=== PATIENT | female | born 1955 | race Caucasian/White ===

== ENCOUNTER 2019-12-29 14:23 | Outpatient (CLI) | payer MEDICARE, MEDICAID, SELFPAY ==
[2019-12-29 15:29] LABS: Alanine Aminotransferase 8 U/L (0-33); Albumin Level 4.6 g/dL (3.5-5.2); Alkaline Phosphatase 117 IU/L (35-105); Anion Gap 16.7 (5-19); Aspartate Amino Transferase 18 U/L (0-32); Blood Urea Nitrogen 16 mg/dL (8-23); Calcium 10.5 mg/dL (8.5-10.5); Carbon Dioxide 27 mmol/L (22-29); Chloride 97 mmol/L (98-107); Glucose 93 mg/dL (65-115); Potassium 3.7 mmol/L (3.5-5.1); Sodium 137 mmol/L (136-145); Total Bilirubin 0.5 mg/dL (0.15-1.2); Total Protein 7.6 g/dL (6.6-8.7)
[2019-12-29 15:40] LABS: Basophils % 0.4 %; Eosinophils # 0.1 10^3/uL (0.0-0.8); Eosinophils % 1.3 %; Hematocrit 44.5 % (37.0-47.0); Hemoglobin 14.5 g/dL (11.5-15.3); Lymphocytes # 1.4 10^3/uL (0.8-4.8); Mean Corpuscular HGB Conc 32.6 g/dL (30.0-36.0); Mean Corpuscular Hemoglobin 30.1 pg (28.0-34.0); Mean Corpuscular Volume 92.3 fL (81-99); Neutrophils # 5.3 10^3/uL (1.8-7.7); Neutrophils % 66.9 %; Nucleated Red Blood Cells % 0 %; Platelet Count 222 10^3/cmm (130-400); Red Blood Count 4.82 10^6/uL (4.1-5.3); Red Cell Distribution Width 13.5 % (12.1-15.1); White Blood Count 7.9 10^3/uL (4.0-10.0)
[2019-12-29 15:51] LABS: Slide Review Slide Review Perform
== END 2019-12-29 14:24 | disposition home or self-care (01) ==
LOC: ONCMED 14:24
PROVIDERS: Family Provider Internal Medicine; PCP Internal Medicine; Visit Provider Internal Medicine Hematology & Oncology
DX: C50.212 Malignant neoplasm of upper-inner quadrant of left female breast (principal); M85.80 Other specified disorders of bone density and structure, unspecified site; R91.8 Other nonspecific abnormal finding of lung field; Z17.0 Estrogen receptor positive status [ER+]; Z79.811 Long term (current) use of aromatase inhibitors; Z92.3 Personal history of irradiation
CPT/HCPCS: 36415; 80053; 85025; 99214

== ENCOUNTER 2020-01-31 14:47 | Outpatient (CLI) | payer MEDICARE, MEDICAID, SELFPAY ==
--- NOTE | 2020-01-31 14:54 | CT_ITS ---
WS: [id number] CT CHEST TECHNIQUE: Contrast enhanced CT of the chest with coronal and sagittal reformatted images. CLINICAL INFORMATION: POLMONARY NODULE COMPARISON: CT August 03, 2019 and multiple prior CTs dating back to May 01, 2018 DLP: 726.[address] scans at [facility] use at least one of these dose optimization techniques: automat ed exposure control; mA and/or kV adjustment per patient size (includes targeted exams where dose is matched to clinical indication); or iterative reconstruction. FINDINGS: Moderate chronic emphysematous changes. Again seen are the nodular opacities in the right middle lobe anteriorly unchanged since the previous examination. Again seen is the noncalcified pulmonary nodul e right upper lobe anteriorly today measuring 8.3 mm compared to 4 mm previous. Recommend 3 month int erval follow-up. Otherwise no new pulmonary opacities. Aortic calcification. No mediastinal or hilar lymphadenopathy. No axillary lymphadenopathy. Normal en dobronchial tree. Mild diffuse fatty infiltration liver. Stable hepatic cysts. Normal adrenal glands. Prior ventral abdominal wall hernia repair. Hypertrophic changes thoracic spine. CT/CT chest w con* [id number] IMPRESSION: 1. Nodular opacities in the right middle lobe along the distal bronchi stable since May 01, 2018 2. Presented described noncalcified pulmonary nodule in right upper lobe is in creased in size today measuring 8.3 mm. Recommend short interval 3 month follow -up. 3. Stable moderate chronic emphysematous changes. 4. No mediastinal or hilar lymphadenopathy. 5. Mild diffuse fatty infiltration of the liver. 6. Stable ventral abdominal wall hernia repair.
[2020-01-31] MEDS: iohexol 300 mg/mL 100 mL Btl IV (15:09)
== END 2020-01-31 14:48 | disposition home or self-care (01) ==
LOC: RADWPI 14:53
PROVIDERS: Family Provider Internal Medicine; PCP Internal Medicine; Visit Provider Internal Medicine
DX: J43.9 Emphysema, unspecified (principal); R91.8 Other nonspecific abnormal finding of lung field; K76.0 Fatty (change of) liver, not elsewhere classified; Z98.890 Other specified postprocedural states
CPT/HCPCS: 71260; Q9967

== ENCOUNTER 2020-03-06 11:16 | Emergency (ER) | payer MEDICARE, MEDICAID, SELFPAY ==
--- NOTE | 2020-03-06 11:28 | W.ED.EXTPRO ---
HPI - Extremity Problem General: Chief complaint: Extremity Injury, Lower Stated complaint: RIGHT FOOT SWELLING Time Seen by Provider: 03/06/20 11:28 Source: patient Mode of arrival: ambulatory Limitations: no limitations History of Present Illness: HPI Narrative: Patient is a 64-year-old female who presents to ED today with complaints of right foot pain. Patient states approximately 3 to 4 days ago while working in her garden she noticed some right foot pain and afterwards noticed the area was swollen. Patient has been resting the extremity and elevating it and has noticed over the weekend swelling and most of the pain has subsided but decided to come to the ED for evaluation. She rates her pain at a 2 out of 10 currently. She does report previous hardware in the foot and ankle that was subsequently removed. Has not had much issue with the foot or ankle joint since. He has not noticed any redness or warmth to the foot. No changes in sensation. MD Complaint: extremity pain Onset (ago): day(s) Pain Consistency: other (almost fully resolved ) Radiation: none Associated symptoms: Reports no associated symptoms Review of Systems Musc: Reports: extremity pain (R foot pain) Neuro: Denies: numbness in extremities, weakness in extremities, changes in sensation or difficulty walking PFS ED PFSH: Social History Smoking and tobacco status: current every day smoker Physical Exam Const: COMMON NORMALS: no apparent distress, average body habitus, oriented x3, no limitations, healthy appearing, alert and well nourished Extremity: OTHER: TTP along medial heel of R foot; no swelling or redness noted Neuro: COMMON NORMALS: oriented x3 SENSORIUM/ORIENTATION: Yes alert Course Vital Signs: Vital signs: Vital Signs Temperature 98.1 F 03/06/20 11:31 Pulse Rate 79 03/06/20 11:31 Respiratory Rate 18 03/06/20 11:31 Blood Pressure 169/94 03/06/20 11:31 Pulse Oximetry 99 03/06/20 11:31 MDM - Extremity (Nontraumatic) Imaging Data^: R foot XR: Radiologist's impression: [address] [place] [address] XRay Report Signed Patient: Liz Tyler Unit #: [id number] : 1955 Age/Sex: 64 / F ADM Date: 03/06/20 Loc: ER Room/Bed: Attending Dr: Ordering Provider/Ordering MD: Melly Burgos Date of Service: 03/06/20 Procedure(s): XR foot RT min 3V* [id number] Accession Number(s): [id number] Report Number: [id number] WS: [id number] RIGHT FOOT: 3 VIEW(S) TECHNIQUE: PA, oblique and lateral. HISTORY: pain/swelling COMPARISON: None available. Diffuse osteopenia. No acute fracture is identified. Normal tarsal/metatarsal alignment. Fixation screw distal fibula. XR/XR foot RT min 3V* [id number] IMPRESSION: Diffuse osteopenia. No acute fracture identified. Dictated By: Silvia Carrillo DO Signed By: Silvia Carrillo DO Signed Date/Time: 03/06/20 1237 DD/ 1235 Discharge Plan Discharge Patient Disposition: Home, Self-Care Clinical Impression: Acute pain of right foot Condition: Stable Discharge Orders: Discharge Order (Routine); Ordered 03/06/20 Ordered By: Melly Burgos Referrals: Lizbeth Galan MD [Primary Care Provider] - Discharge Diet: Usual diet Discharge Activity: Increase activity as tolerated Coding Level of Care Code ED Page Technician for Cherri Handy
[2020-03-06 11:31] VITALS: BP 169/94; PULSE 79; RESP 18; TEMP 36.7; O2SAT 99; BMI 24.7
--- NOTE | 2020-03-06 12:12 | XR_ITS ---
WS: [id number] RIGHT FOOT: 3 VIEW(S) TECHNIQUE: PA, oblique and lateral. HISTORY: pain/swelling COMPARISON: None available. Diffuse osteopenia. No acute fracture is identified. Normal tarsal/metatarsal alignment. Fixation screw distal fibula. XR/XR foot RT min 3V* [id number] IMPRESSION: Diffuse osteopenia. No acute fracture identified.
== END 2020-03-06 13:35 | disposition home or self-care (01) ==
PROVIDERS: Emergency Provider Physician Assistant; Family Provider Internal Medicine; PCP Internal Medicine
DX: M79.89 Other specified soft tissue disorders (principal); M79.671 Pain in right foot; F17.200 Nicotine dependence, unspecified, uncomplicated
CPT/HCPCS: 12345; 73630; 99281; 99283

== ENCOUNTER 2020-03-10 12:53 | Outpatient (CLI) | payer MEDICARE, MEDICAID, SELFPAY ==
--- NOTE | 2020-03-10 13:05 | XR_ITS ---
WS: [id number] RIGHT FOOT: 3 VIEW(S) TECHNIQUE: PA, oblique and lateral. HISTORY: PAIN COMPARISON: 03/06/2020 Osteopenia. No fracture identified. No erosions or subluxation. Normal tarsal/metatarsal alignment. Orthopedic screw in the distal fibula without complication. XR/XR foot RT min 3V* [id number] IMPRESSION: Osteopenia. No acute abnormality.
== END 2020-03-10 12:54 | disposition home or self-care (01) ==
LOC: RAD 12:57
PROVIDERS: Family Provider Internal Medicine; PCP Internal Medicine; Visit Provider Nurse Practitioner Family
DX: M79.671 Pain in right foot (principal); M85.871 Other specified disorders of bone density and structure, right ankle and foot
CPT/HCPCS: 73630

== ENCOUNTER → 2020-04-25 15:57 | Outpatient (BNVA) | payer MEDICARE, MEDICAID, SELFPAY | PROVIDERS: Family Provider Internal Medicine; PCP Internal Medicine; Referring Provider Nurse Practitioner Family; Visit Provider Podiatrist Foot & Ankle Surgery | DX: M77.31 Calcaneal spur, right foot (principal) | CPT/HCPCS: 73650 ==

== ENCOUNTER 2020-04-28 12:49 | Outpatient (CLI) | payer MEDICARE, MEDICAID, SELFPAY ==
--- NOTE | 2020-04-28 12:58 | MM_ITS ---
WS: [id number] DIAGNOSTIC BILATERAL DIGITAL MAMMOGRAM WITH CAD HISTORY: HX OF BREAST CA COMPARISON: 04/05/2019, 04/22/2018 and 04/03/2018 TECHNIQUE: Bilateral craniocaudad, mediolateral oblique, and mediolateral views are submitted. Comput er aided detection utilized. Breast composition: The breasts are heterogeneously dense, which may obscure small masses. Mild incre ase in the trabecular pattern throughout the LEFT breast with mild volume loss. Consistent with prior history of lumpectomy. There is distortion at the lumpectomy site. No new or increasing areas of dis tortion. Scattered calcifications within each breast. MM/[place] [id number] IMPRESSION: BI-RADS: 2-Benign FOLLOW UP: 1 Year Follow-up
== END 2020-04-28 12:50 | disposition home or self-care (01) ==
LOC: RADSHAW 12:56
PROVIDERS: PCP Internal Medicine; Visit Provider Internal Medicine
DX: Z85.3 Personal history of malignant neoplasm of breast (principal)
CPT/HCPCS: 77066

== ENCOUNTER 2020-06-28 12:03 | Outpatient (CLI) | payer MEDICARE, MEDICAID, SELFPAY ==
[2020-06-28 12:31] LABS: Basophils % 0.5 %; Eosinophils # 0.2 10^3/uL (0.0-0.8); Eosinophils % 3.5 %; Hematocrit 45.7 % (37.0-47.0); Hemoglobin 14.2 g/dL (11.5-15.3); Lymphocytes # 1.1 10^3/uL (0.8-4.8); Lymphocytes % 17.7 %; Mean Corpuscular HGB Conc 31.1 g/dL (30.0-36.0); Mean Corpuscular Hemoglobin 29.6 pg (28.0-34.0); Mean Corpuscular Volume 95.4 fL (81-99); Mean Platelet Volume 10.9 fL (7.4-10.4); Monocytes # 0.8 10^3/uL (0.2-0.9); Monocytes % 13.7 %; Neutrophils # 3.86 10^3/uL (1.8-7.7); Neutrophils % 63.9 %; Nucleated Red Blood Cells % 0 %; Platelet Count 201 10^3/cmm (130-400); Red Blood Count 4.79 10^6/uL (4.1-5.3); Red Cell Distribution Width 14.2 % (12.1-15.1)
[2020-06-28 12:56] LABS: Alanine Aminotransferase 9 U/L (0-33); Albumin Level 4.3 g/dL (3.5-5.2); Alkaline Phosphatase 102 IU/L (35-105); Anion Gap 14.7 (5-19); Aspartate Amino Transferase 15 U/L (0-32); Blood Urea Nitrogen 21 mg/dL (8-23); Calcium 9.1 mg/dL (8.5-10.5); Carbon Dioxide 26 mmol/L (22-29); Chloride 105 mmol/L (98-107); Globulin 2.7 g/dL (1.3-4.6); Glomerular Filtration Rate 44.9 mL/min (90-130); Glucose 84 mg/dL (65-115); Osmolality Calculated 288 mOsm/kg (285-295); Potassium 4.7 mmol/L (3.5-5.1); Sodium 141 mmol/L (136-145); Total Bilirubin 0.3 mg/dL (0.15-1.2)
--- NOTE | 2020-06-28 15:07 | ONC FU_ITS ---
Dr. East follow up note Patient: Liz Tyler Unit #: [id number]: 1955 Dicatated By: Edgar East M.D.Date of Visit:Jun 28, 2020 Onc Med Follow-up/Prog Note History of Present Illness: Mrs. Liz Azul, 65-year-old female who was recently diagnosed with infiltrating adenocarcinoma left breast as per patient her routine annual follow-up mammogram done this year showed a spiculated mass in her left breast which was confirmed with a left breast ultrasound done on 04/22/2018 at that time she underwent sonogram guided left breast biopsy which confirmed infiltrating adenocarcinoma, patient underwent left breast excisional biopsy with sentinel lymph node biopsy on 06/05/2018 which showed infiltrating ductal carcinoma but positive inferior and posterior margin and 1 out of 4, positive lymph node. ER/HI positive HER-2/leila negative. Patient underwent reexcision of inferior and posterior margins on 06/24/2018 and final pathology report showed inferior margin involved by microscopic nest of residual tumor whereas posterior margin was free of residual tumor.Oncotype DX showed low risk s/p postlumpectomy radiation in 09/10 and now on adjuvant hormonal therapy with Arimidex vitamin D/calcium, since 07/21/18 Follow-up mammogram done on 04/05/2019 showed BI-RADS 2, benign follow-up mammogram done on April 28, 2020 showed BI-RADS 2, benign Follow-up CT scan of chest ordered by PMD regarding right middle lobe lung nodule on January 31, 2020 showed noncalcified pulmonary nodule in the right upper lobe is increased in size, 8.3 mm compared to 4 mm previously on August 03, 2019. Right middle lobe nodular opacities stable since May 01, 2018. Otherwise no mediastinal or hilar lymphadenopathy Came for follow-up, denies any specific complaints, no fever chills, no nausea or vomiting, no diarrhea constipation, no hemoptysis or hematemesis, no new bony pains, still smoking about 2 packs a day. Tolerating Arimidex/vitamin D/calcium and weekly Fosamax well Medications: ClearLax Powder Oral daily PRN, Levothyroxine Sodium 1 (50 mcg) Tablet Oral daily, Meloxicam 1 (15 mg) Tablet Oral daily, Pravastatin Sodium 1 (40 mg) Tablet Oral at bedtime, Symbicort 2 puff(s) (of 160-4.5 mcg/act) Aerosol Inhalation b.i.d., TraZODone HCl 1 (100 mg) Tablet Oral at bedtime Allergies: Codeine Sulfate Review of Systems: Review of Systems is not available for this patient. Vital Signs: Performed on Jun 28, 2020 14:31 Height - 63.00 in Weight - 147.4 lbs (HIGH) BSA - 1.70 sq.m BMI - 26.11 Temperature - 98.1 F (LOW) Pulse - 79 /min Respiration - 24 /min BP - 113/77 mm(hg) O2 Sat - 94 % (LOW) Pain - 0 Performance Status: 0 - Fully active, able to carry on all predisease activities without restrictions. (ECOG) Physical Examination: Respiratory - Poor air entry otherwise clear, Cardiovascular - Regular rate and rhythm of heart, Gastrointestinal - Soft, bowel sounds present, Extremities - No visible edema. Lab/Imaging: Most recent lab results are not available for this patient. Impression: Infiltrating ductal carcinoma involving left breast per biopsy and sentinel lymph node done on 06/05/2018 followed by reexcision on 06/24/2018 for positive inferior and posterior margin and final pathology report showed persistent positive inferior margin but posterior margin was cleared. Next Size of tumor 3.2 x 2.6 cm, T2 1 out of 4, positive sentinel lymph node pN1 (SN) ER 98%, HI 95%, HER-2/leila negative stage IIB Oncotype DX score 10 e.g. low risk and 5 years risk of recurrence after 5 years of hormone therapy is about 9% Status post postlumpectomy radiation therapy in August 2018 Starting Arimidex 1 mg on 07/21/2018 for 5 years Along with vitamin D and calcium supplements Mammogram done on 04/05/2019 showed her BI-RADS 2 DEXA scan done on 10/25/2019 showed osteopenia, FRAX calculated at 10 years probability for major osteoporotic fracture is 16.6% and osteoporotic hip fracture is 3.8% and patient is on aromatase inhibitor which promote bone demineralization, because of that she was started on preventive dose of Fosamax, 35 mg by mouth weekly on 12/29/2019 Plan: Discussed with patient regarding her labs white blood count 6 hemoglobin 14.2 crit 45.7 platelets 201,000, CMP within normal limit except creatinine 1.2 compared to 0.8 on December 25, 2019 and follow-up mammogram, which was benign and CT scan of chest ordered by her PMD findings which showed increase in size of right upper lobe lung nodule and stable right middle lobe nodular opacities when compared with CT scan done in April 2018. Clinically, patient is doing well with no new signs symptom suggestive of recurrence of disease. Tolerating Arimidex/vitamin D/calcium/weekly Fosamax well, her lab work-up is within normal range except change in creatinine level, as per patient her primary care is following her kidney function as well as right upper lobe lung nodule which showed change in size on CT scan of chest done on January 31, 2020 and follow-up CT scan of chest is scheduled for July 04, 2020,. She will continue with Arimidex and vitamin D/calcium/weekly Fosamax and we will see her back in 6 months with CBC CMP Signed By: Edgar East M.D. <<Signature on File>>
== END 2020-06-28 12:04 | disposition home or self-care (01) ==
LOC: ONCMED 12:07
PROVIDERS: PCP Internal Medicine; Visit Provider Internal Medicine Hematology & Oncology
DX: C50.212 Malignant neoplasm of upper-inner quadrant of left female breast (principal); C77.3 Secondary and unspecified malignant neoplasm of axilla and upper limb lymph nodes; Z17.0 Estrogen receptor positive status [ER+]; R91.1 Solitary pulmonary nodule; M85.80 Other specified disorders of bone density and structure, unspecified site; Z79.811 Long term (current) use of aromatase inhibitors
CPT/HCPCS: 80053; 85025; 99214

== ENCOUNTER 2020-07-04 09:51 | Outpatient (CLI) | payer MEDICARE, MEDICAID, SELFPAY ==
--- NOTE | 2020-07-04 | CT_ITS ---
WS: [id number] CT CHEST WITH INTRAVENOUS CONTRAST HISTORY: PULMONARY NODULE TECHNIQUE: Contiguous 5 mm axial imaging performed on the thorax. Coronal and sagittal reformats are submitted. All CT scans at [facility] use at least one of these dose optimization techniq ues: automated exposure control; mA and/or kV adjustment per patient size (includes targeted exams wh ere dose is matched to clinical indication); or iterative reconstruction. CONTRAST: Visipaque 320; 95 mL IV. DLP: 812.06 mGycm COMPARISON: 01/31/2020, 08/03/2019, 01/18/2019 Lungs and central airway: Hyperinflated lungs from emphysema. Continued increase in size of the ovoid nodule RIGHT upper lobe anteriorly. This nodule now measures 11 x 15 mm in the margins are very slig htly irregular. Long-term stability of tubular opacifications in the RIGHT middle lobe. No new pulmon leatha nodule. No pneumonia. Pleura: Normal. No pleural effusion. Heart and pericardium: Normal size heart. No pericardial effusion. Mediastinum and robin: New, enlarged RIGHT paratracheal lymph node now with a maximum diameter of 1.8 cm. This lymph node is of low attenuation and extends over length of 3.6 cm. May be a cluster of lymp h nodes but is abnormal. There are additional smaller mediastinal lymph nodes. Vessels: Mild atherosclerosis aorta. Normal size pulmonary artery. Chest wall and lower neck: No soft tissue masses. Upper abdomen: The entire liver is not imaged and appears slightly enlarged. There are a few scattere d hypodensities throughout the liver which are probably small cysts but too small to characterize. No adrenal mass. Small hiatal hernia. Osseous structures: Mild increase in thoracic kyphosis. CT/CT chest w con* [id number] IMPRESSION: 1. Significant enlargement in the anterior RIGHT upper lobe pulmonary nodule s darío 01/31/2020. Nodule now measures 11 x 15 mm. Prior measurement 8 x 9 mm. 2. New RIGHT paratracheal lymphadenopathy. 3. Recommend follow-up PET/CT and bronchoscopy. This would be a difficult nodu le to biopsy by CT.
[2020-07-04] MEDS: iodixanol 320 mg/mL 100mL Btl IV (11:20)
== END 2020-07-04 09:52 | disposition home or self-care (01) ==
LOC: RADWPI 09:54
PROVIDERS: PCP Internal Medicine; Visit Provider Internal Medicine
DX: R91.1 Solitary pulmonary nodule (principal); R59.0 Localized enlarged lymph nodes
CPT/HCPCS: 71260; Q9967

== ENCOUNTER 2020-07-28 15:46 | Emergency (ER) | payer MEDICARE, MEDICAID, SELFPAY ==
[2020-07-28 15:55] VITALS: BP 113/81; PULSE 93; RESP 18; TEMP 36.4; O2SAT 97; BMI 25.4
[2020-07-28 17:00] VITALS: O2SAT 94
--- NOTE | 2020-07-28 17:06 | USR_ITS ---
PROCEDURE INFORMATION: Exam: US Abdomen, Limited; Right Upper Quadrant Exam date and time: 07/28/2020 5:30 PM Age: 65 years old Clinical indication: Abdominal pain; Acute; Patient HX: PT had breast cancer 2 years ago. Pain is epigastric and RT. Lateral abd; Additional info: Abd pain TECHNIQUE: Imaging protocol: US abdomen. Real time ultrasound with image documentation. Limited exam focused on the right upper quadrant. COMPARISON: CT abdomen pelvis w con* [id number] 05/08/2018 2:12 PM FINDINGS: Liver: Again note of the inferior segment right hepatic lobe tumor mass sonographic dimensions 32 mm x 30 mm x 32 mm. Known two smaller centimeter and subcentimeter potential metastatic foci as described on the CT abdomen and pelvis examination report. Please refer to that report. Gallbladder: Gallbladder unremarkable. No visible cholelithiasis. No gallbladder wall thickening or pericholecystic fluid. Common bile duct: No visible intra or extrahepatic biliary ectasia. Common bile duct under 3 mm. Pancreas: Visualized pancreas is unremarkable. Right kidney: Right kidney is sonographically normal. No visible hydronephrosis or perinephric fluid. Right renal dimensions 8.7 cm x 3.8 cm x 4 cm. No visible renal mass or dominant cortical cysts. Aorta: The abdominal aorta is nonaneurysmal were visualized. Portal venous: Hepatopetal portal venous flow. Inferior vena cava: IVC patent. Other findings: Please review separate CT abdomen and pelvis report 07/28/2020 6:25 p.m. US/US gall bladder [id number] IMPRESSION: Again note of the inferior segment right hepatic lobe tumor mass sonographic dimensions 32 mm x 30 mm x 32 mm. Known two smaller centimeter and subcentimeter potential metastatic foci as described on the CT abdomen and pelvis examination report. Please refer to that report.
[2020-07-28 17:12] LABS: Basophils % 0.3 %; Eosinophils # 0.3 10^3/uL (0.0-0.8); Eosinophils % 2.6 %; Hematocrit 47.3 % (37.0-47.0); Hemoglobin 15.5 g/dL (11.5-15.3); Lymphocytes # 1.2 10^3/uL (0.8-4.8); Lymphocytes % 9.8 %; Mean Corpuscular HGB Conc 32.8 g/dL (30.0-36.0); Mean Corpuscular Hemoglobin 30.3 pg (28.0-34.0); Mean Corpuscular Volume 92.4 fL (81-99); Mean Platelet Volume 10.5 fL (7.4-10.4); Monocytes # 1.2 10^3/uL (0.2-0.9); Monocytes % 10.3 %; Neutrophils # 8.95 10^3/uL (1.8-7.7); Neutrophils % 76.7 %; Nucleated Red Blood Cells % 0 %; Platelet Count 239 10^3/cmm (130-400); Red Blood Count 5.12 10^6/uL (4.1-5.3); Red Cell Distribution Width 13.9 % (12.1-15.1); White Blood Count 11.7 10^3/uL (4.0-10.0)
--- NOTE | 2020-07-28 17:19 | W.ED.ABDPA2 ---
Documented by User: Kuldip Maya DO 08/02/20 06:40 HPI - Abdominal Pain General: Chief Complaint: Abdominal Pain Stated Complaint: poss gall stones Time Seen by Provider: 07/28/20 16:50 History of Present Illness: HPI narrative: 65-year-old female presents emergency room with right upper quadrant supraumbilical pain radiating around to the back for the last month. She has been nauseated gets worse to both the pain and the nausea shortly after eating. She denies any vomiting or diarrhea. She denied any hematemesis coffee-ground emesis hematochezia or melena. She has been very bloated. He has not had any further evaluation for her gallbladder in the past although this been going on for a while. She also has a history of about a year ago being diagnosed with breast cancer that was stage IIb at the time of diagnosis and was resected but she does not have a mastectomy she has undergone chemotherapy for it as well as radiation. In the course evaluation she is found to have a lung nodule and a follow-up CT last month lung nodule had significantly increased she had perihilar lymphadenopathy on the right. There are no lung nodules in the right upper lobe. She has had a PET scan very recently has not heard the results yet she is supposed to go for bronchoscopy as well but that is not been done either. She denies dysuria urgency or frequency or hematuria. MD elicited complaint: abdominal pain Onset (ago): month(s) (1) Pain Consistency: intermittent Location: Periumbilical Severity: moderate Quality: cramping and stabbing Radiation: back Migration to: RUQ and epigastric Exacerbating factors: eating Relieving factors: nothing Associated Symptoms: Reports anorexia, bloating and GI cramping; Denies change in bowel habits, change in stool character, chills, coffee ground emesis, constipation, diarrhea, dyspepsia, dysuria, excessive flatus, fever(s), heartburn, hematochezia, hematuria, hematemesis, fecal incontinence, loose stools, melena, nausea, poor appetite, syncope and vomiting Review of Systems Const: Denies: fever(s) or chills ENMT: Denies: throat pain, ear or mastoid pain, nasal discharge or nasal congestion Card: Denies: syncope Resp: Denies: dyspnea, productive cough or non-productive cough GI: Reports: bloating and GI cramping; Denies: nausea, vomiting, hematemesis, coffee ground emesis, heartburn, diarrhea, constipation, excessive flatus, fecal incontinence, change in bowel habits, change in stool character, hematochezia or melena : Denies: dysuria or hematuria Skin/Breast: Denies: rash or pruritus PFSH ED PFSH: Medical History (Updated 07/28/20 @ 19:04 by Chiki Jean Baptiste DO) Hx of breast cancer Family History Other CAD (coronary artery disease) Cancer Social History (Updated 07/28/20 @ 18:01 by Kuldip Maya DO) Smoking and tobacco status: current every day smoker cigarettes Packs smoked per day: 2 Years cigarettes smoked: 52 Alcohol intake: never Current occupational status: disabled Physical Exam Const: COMMON NORMALS: no acute distress GENERAL APPEARANCE: cooperative and comfortable ORIENTATION/CONSCIOUSNESS: Yes awake, Yes oriented to person, Yes oriented to place and Yes oriented to time HENMT: COMMON NORMALS: normocephalic, atraumatic and hearing grossly normal bilaterally HEAD & SCALP: normocephalic and atraumatic Neck/C-Spine: COMMON NORMALS: no JVD Resp: COMMON NORMALS: normal respiratory effort, No retractions, No use of accessory muscles and clear to auscultation bilaterally AUSCULTATION: clear to auscultation bilaterally Cardio: COMMON NORMALS: no JVD, regular rate, regular rhythm and No murmurs present (Cardio) RATE: regular rate RHYTHM: regular rhythm GI: COMMON NORMALS: Soft to palpation and No hepatosplenomegaly present AUSCULTATION: Yes normoactive bowel sounds PALPATION: Yes Soft to palpation, No Tenderness to palpation present (GI), No Guarding due to palpation present (GI) and Yes No hepatosplenomegaly present Extremity: COMMON NORMALS: normal to inspection, capillary refill normal, no clubbing, cyanosis or edema, no calf tenderness and no pedal edema Neuro: SENSORIUM/ORIENTATION: Yes oriented to person, Yes oriented to place and Yes oriented to time Skin: COMMON NORMALS: no rashes or lesions noted GENERAL SKIN EXAM: no rashes or lesions noted Course Vital Signs: Vital signs: Vital Signs Temperature 97.5 F L 07/28/20 15:55 Pulse Rate 86 07/28/20 19:32 Respiratory Rate 18 07/28/20 19:32 Blood Pressure 112/80 07/28/20 19:32 Pulse Oximetry 95 07/28/20 19:32 MDM - Abdominal Pain MDM Narrative: Medical decision making narrative: Care transferred to Dr. Burkett at change of shift. See his notes for definitive diagnosis and at discharge. Lab Data: Labs: Lab Results 07/28/20 07/28/20 07/28/20 Range/Units 17:04 17:04 18:49 WBC 11.7 H (4.0-10.0) 10^3/ uL RBC 5.12 (4.1-5.3) 10^6/u L Hgb 15.5 H (11.5-15.3) g/dL Hct 47.3 H (37.0-47.0) % MCV 92.4 (81-99) fL MCH 30.3 (28.0-34.0) pg MCHC 32.8 (30.0-36.0) g/dL RDW 13.9 (12.1-15.1) % Plt Count 239 (130-400) 10^3/c mm MPV 10.5 H (7.4-10.4) fL Neut % (Auto) 76.7 % Lymph % (Auto) 9.8 % [place] % (Auto) 10.3 % Eos % (Auto) 2.6 % Baso % (Auto) 0.3 % Neut # (Auto) 8.95 H (1.8-7.7) 10^3/u L Lymph # (Auto) 1.2 (0.8-4.8) 10^3/u L [place] # (Auto) 1.2 H (0.2-0.9) 10^3/u L Eos # (Auto) 0.3 (0.0-0.8) 10^3/u L Baso # (Auto) 0.0 (0.0-0.1) 10^3/u L Nucleated RBC % (a uto) 0 % Nucleated RBCs # 0.0 /100WBC Sodium 137 (136-145) mmol/L Potassium 4.3 (3.5-5.1) mmol/L Chloride 99 (98-107) mmol/L Carbon Dioxide 26 (22-29) mmol/L Anion Gap 16.3 (5-19) BUN 15 (8-23) mg/dL Creatinine 0.9 (0.5-0.9) mg/dL GFR Calculation 62.6 L (90-130) mL/min Glucose 86 (65-115) mg/dL Calculated Osmolal ity 280 L (285-295) mOsm/k g Calcium 9.8 (8.5-10.5) mg/dL Total Bilirubin 0.4 (0.15-1.2) mg/dL AST 15 (0-32) U/L ALT 9 (0-33) U/L Alkaline Phosphata se 112 H (35-105) IU/L Total Protein 7.9 (6.6-8.7) g/dL Albumin 4.7 (3.5-5.2) g/dL Globulin 3.2 (1.3-4.6) g/dL Lipase 23 (13-60) U/L Urine Color Yellow (Yellow) Urine Appearance Clear (CLEAR) Urine pH 6.5 (5-7) Ur Specific Gravit y 1.010 (1.005-1.030) Urine Protein Trace (Negative) Urine Glucose (UA) Norm (Normal) Urine Ketones 1+ H (Negative) Urine Blood Neg (Negative) Urine Nitrate Negative (Negative) Urine Bilirubin 1+ H (NEGATIVE) Urine Urobilinogen 4 H (Negative) mg/dL Ur Leukocyte Lauren ase Negative (Negative) Urine RBC None (0-2) /hpf Urine WBC 0-4 H (0-5) /hpf Ur Squamous Epith Cells 0-4 H (0-5) Amorphous Sediment Not Reportable Urine Bacteria Trace (NONE) Urine Mucus 3+ Discharge Plan Discharge Patient Disposition: Home Clinical Impression: Abdominal pain Qualifiers: Abdominal location: epigastric Qualified Code(s): R10.13 - Epigastric pain Condition: Stable Prescriptions: New Prevacid 30 mg capsule,delayed release(DR/EC) 30 mg PO DAILY Qty: 30 RF: 0 Carafate 1 gram tablet 1 gm PO Q6H Qty: 90 RF: 0 No Action levothyroxine 50 mcg capsule 50 mcg PO DAILY RF: 0 trazodone 50 mg tablet 25 mg PO DAILY RF: 0 meloxicam 15 mg tablet 15 mg PO DAILY RF: 0 (DME) heel lift See Rx Instructions .Route .MEDSUPPLY Qty: 1 RF: 0 Discharge Orders: Discharge Order (Routine); Ordered 07/28/20 Ordered By: Chiki Jean Baptiste Referrals: Lizbeth Galan MD [Primary Care Provider] - 4-7 days Patient Instructions: Abdominal Pain (ED) Activity Restrictions/Additional Instructions: Give your oncologist to call Friday to let them know you were here and evaluated for abdominal pain. They may wish to do more or other tests. Let your doctor know you are being treated empirically for gastric ulcer. Return for fever greater than 100, worsening pain despite treatment, vomiting liquids or medications, other concerning symptoms. Discharge Date/Time: 07/28/20 19:33 Coding Level of Care Code ED Active Directory Engineer for Chg Fwd Exam Comprehensive Documented by User: Chiki Jean Baptiste DO 07/28/20 23:28 HPI - Abdominal Pain General: Chief Complaint: Abdominal Pain Stated Complaint: poss gall stones Time Seen by Provider: 07/28/20 16:50 PFSH ED PFSH: Medical History (Updated 07/28/20 @ 19:04 by Chiki Jean Baptiste DO) Hx of breast cancer Family History Other CAD (coronary artery disease) Cancer Social History (Updated 07/28/20 @ 18:01 by Kuldip Maya DO) Smoking and tobacco status: current every day smoker cigarettes Packs smoked per day: 2 Years cigarettes smoked: 52 Alcohol intake: never Current occupational status: disabled Course Vital Signs: Vital signs: Vital Signs Temperature 97.5 F L 07/28/20 15:55 Pulse Rate 86 07/28/20 19:32 Respiratory Rate 18 07/28/20 19:32 Blood Pressure 112/80 07/28/20 19:32 Pulse Oximetry 95 07/28/20 19:32 MDM - Abdominal Pain MDM Narrative: Medical decision making narrative: 65-year-old female checked out to me by Dr. Maya. She is experiencing epigastric type pain. Her hemoglobin is 15.5. She had a mild leukocytosis of 11.7. Her other laboratory is benign. Her CT and ultrasound showed a mass in her liver that is likely metastatic from prior breast cancer. Her gallbladder appears benign. She will be treated for gastric ulcer, as her symptoms fit this. She will follow-up with both primary care and oncology. Lab Data: Labs: Lab Results 07/28/20 07/28/20 07/28/20 Range/Units 17:04 17:04 18:49 WBC 11.7 H (4.0-10.0) 10^3/ uL RBC 5.12 (4.1-5.3) 10^6/u L Hgb 15.5 H (11.5-15.3) g/dL Hct 47.3 H (37.0-47.0) % MCV 92.4 (81-99) fL MCH 30.3 (28.0-34.0) pg MCHC 32.8 (30.0-36.0) g/dL RDW 13.9 (12.1-15.1) % Plt Count 239 (130-400) 10^3/c mm MPV 10.5 H (7.4-10.4) fL Neut % (Auto) 76.7 % Lymph % (Auto) 9.8 % [place] % (Auto) 10.3 % Eos % (Auto) 2.6 % Baso % (Auto) 0.3 % Neut # (Auto) 8.95 H (1.8-7.7) 10^3/u L Lymph # (Auto) 1.2 (0.8-4.8) 10^3/u L [place] # (Auto) 1.2 H (0.2-0.9) 10^3/u L Eos # (Auto) 0.3 (0.0-0.8) 10^3/u L Baso # (Auto) 0.0 (0.0-0.1) 10^3/u L Nucleated RBC % (a uto) 0 % Nucleated RBCs # 0.0 /100WBC Sodium 137 (136-145) mmol/L Potassium 4.3 (3.5-5.1) mmol/L Chloride 99 (98-107) mmol/L Carbon Dioxide 26 (22-29) mmol/L Anion Gap 16.3 (5-19) BUN 15 (8-23) mg/dL Creatinine 0.9 (0.5-0.9) mg/dL GFR Calculation 62.6 L (90-130) mL/min Glucose 86 (65-115) mg/dL Calculated Osmolal ity 280 L (285-295) mOsm/k g Calcium 9.8 (8.5-10.5) mg/dL Total Bilirubin 0.4 (0.15-1.2) mg/dL AST 15 (0-32) U/L ALT 9 (0-33) U/L Alkaline Phosphata se 112 H (35-105) IU/L Total Protein 7.9 (6.6-8.7) g/dL Albumin 4.7 (3.5-5.2) g/dL Globulin 3.2 (1.3-4.6) g/dL Lipase 23 (13-60) U/L Urine Color Yellow (Yellow) Urine Appearance Clear (CLEAR) Urine pH 6.5 (5-7) Ur Specific Gravit y 1.010 (1.005-1.030) Urine Protein Trace (Negative) Urine Glucose (UA) Norm (Normal) Urine Ketones 1+ H (Negative) Urine Blood Neg (Negative) Urine Nitrate Negative (Negative) Urine Bilirubin 1+ H (NEGATIVE) Urine Urobilinogen 4 H (Negative) mg/dL Ur Leukocyte Lauren ase Negative (Negative) Urine RBC None (0-2) /hpf Urine WBC 0-4 H (0-5) /hpf Ur Squamous Epith Cells 0-4 H (0-5) Amorphous Sediment Not Reportable Urine Bacteria Trace (NONE) Urine Mucus 3+ Discharge Plan Discharge Patient Disposition: Home Clinical Impression: Abdominal pain Qualifiers: Abdominal location: epigastric Qualified Code(s): R10.13 - Epigastric pain Condition: Stable Prescriptions: New Prevacid 30 mg capsule,delayed release(DR/EC) 30 mg PO DAILY Qty: 30 RF: 0 Carafate 1 gram tablet 1 gm PO Q6H Qty: 90 RF: 0 No Action levothyroxine 50 mcg capsule 50 mcg PO DAILY RF: 0 trazodone 50 mg tablet 25 mg PO DAILY RF: 0 meloxicam 15 mg tablet 15 mg PO DAILY RF: 0 (DME) heel lift See Rx Instructions .Route .MEDSUPPLY Qty: 1 RF: 0 Discharge Orders: Discharge Order (Routine); Ordered 07/28/20 Ordered By: Chiki Jean Baptiste Referrals: Lizbeth Galan MD [Primary Care Provider] - 4-7 days Patient Instructions: Abdominal Pain (ED) Activity Restrictions/Additional Instructions: Give your oncologist to call Friday to let them know you were here and evaluated for abdominal pain. They may wish to do more or other tests. Let your doctor know you are being treated empirically for gastric ulcer. Return for fever greater than 100, worsening pain despite treatment, vomiting liquids or medications, other concerning symptoms. Discharge Date/Time: 07/28/20 19:33 Coding Level of Care Code ED Active Directory Engineer for Chg Fwd Exam Comprehensive
[2020-07-28 17:37] LABS: Alanine Aminotransferase 9 U/L (0-33); Albumin Level 4.7 g/dL (3.5-5.2); Alkaline Phosphatase 112 IU/L (35-105); Anion Gap 16.3 (5-19); Aspartate Amino Transferase 15 U/L (0-32); Blood Urea Nitrogen 15 mg/dL (8-23); Calcium 9.8 mg/dL (8.5-10.5); Carbon Dioxide 26 mmol/L (22-29); Chloride 99 mmol/L (98-107); Globulin 3.2 g/dL (1.3-4.6); Glomerular Filtration Rate 62.6 mL/min (90-130); Glucose 86 mg/dL (65-115); Lipase 23 U/L (13-60); Osmolality Calculated 280 mOsm/kg (285-295); Potassium 4.3 mmol/L (3.5-5.1); Sodium 137 mmol/L (136-145); Total Bilirubin 0.4 mg/dL (0.15-1.2); Total Protein 7.9 g/dL (6.6-8.7)
--- NOTE | 2020-07-28 17:42 | CTR_ITS ---
PROCEDURE INFORMATION: Exam: CT Abdomen And Pelvis With Contrast Exam date and time: 07/28/2020 5:49 PM Age: 65 years old Clinical indication: Abdominal pain; Localized; Right upper quadrant (ruq); Patient HX: C/O ruq pain and nausea; Additional info: Abd pain TECHNIQUE: Imaging protocol: Computed tomography of the abdomen and pelvis with intravenous contrast. Radiation optimization: All CT scans at this facility use at least one of these dose optimization techniques: automated exposure control; mA and/or kV adjustment per patient size (includes targeted exams where dose is matched to clinical indication); or iterative reconstruction. Contrast material: OMNI 300; Contrast volume: 95 ml; Contrast route: INTRAVENOUS (IV); COMPARISON: CT abdomen pelvis w con* [id number] 05/08/2018 2:12 PM RADIATION DOSE METRICS: Total DLP (mGy-cm): 557.58 FINDINGS: Lungs: Limited assessment lung bases without visible evidence of active cardiopulmonary process. Liver: New right hepatic lobe mass measuring 31 mm x 25 mm x 29 mm located in the inferior segment of the right hepatic lobe. Two smaller metastatic foci are also identified 1 in the anterior segment of the right hepatic lobe measuring 9 mm in the 2nd left hepatic lobe measuring under 1 cm barely perceptible. Again note of rare tiny hepatic simple cysts since 05/08/2018. Concern for either primary hepatic carcinoma versus metastasis. Gallbladder and bile ducts: Gallbladder contracted. No visible cholelithiasis. Pancreas: Pancreas unremarkable. No visible pancreatic mass. No ductal dilatation. Spleen: Normal. No splenomegaly. Adrenals: Normal. No mass. Kidneys and ureters: Normal. No hydronephrosis. Stomach and bowel: No visible colonic mass. No evidence for significant diverticulosis coli or diverticulitis. Nonobstructive bowel pattern. No visible adynamic or reactive ileus. No visible gastric mass. No visible small bowel neoplasm. Appendix: The appendix is visualized and appears noninflamed. Intraperitoneal space: No visible intraperitoneal ascites. Vasculature: The abdominal aorta is nonaneurysmal. Moderate arterial sclerotic disease. Lymph nodes: No visible active mesenteric or retroperitoneal lymphadenopathy. No visible pelvic lymphadenopathy. Bladder: Unremarkable as visualized. Reproductive: Unremarkable as visualized. Bones/joints: No visible osteolytic or osteoblastic destructive process. Osteopenia. Degenerative disc disease with disc space height loss and vacuum disc phenomenon L4/L5. Soft tissues: Unremarkable. CT/CT abdomen pelvis w con* [id number] IMPRESSION: Interval development of neoplasia with the dominant mass inferior segment right hepatic lobe measuring 31 mm x 25 mm x 29 mm. Two smaller suspected metastatic foci also identified. Concern for either primary hepatocellular carcinoma versus metastasis. Radiation Dose CTDIVOL = (mGy): DLP = 557.58 (mGy-cm)
[2020-07-28 17:53] VITALS: BP 103/75; PULSE 78; O2SAT 90
[2020-07-28] MEDS: iohexol 300 mg/mL 100 mL Btl IV (18:02)
[2020-07-28 19:03] LABS: Urine Appearance Clear (CLEAR); Urine Color Yellow (Yellow); pH Urine 6.5 (5-7)
[2020-07-28 19:04] LABS: Add Urine Microscopic? YES; Bilirubin Urine 1+ (NEGATIVE); Blood Urine Neg (Negative); Glucose Urine UA Norm (Normal); Ketones Urine 1+ (Negative); Leukocyte Esterase Urine Negative (Negative); Nitrate Urine Negative (Negative); Protein Urine Trace (Negative); Urobilinogen Urine 4 mg/dL (Negative)
[2020-07-28 19:05] LABS: Add Urine Culture? No; Bacteria Urine TRACE; Mucus Urine 3+; Squamous Epithelial Cell Urine 0-4 (0-5); WBC Urine 0-4 /hpf (0-5)
[2020-07-28 19:32] VITALS: BP 112/80; PULSE 86; RESP 18; O2SAT 95
== END 2020-07-28 19:33 | disposition home or self-care (01) ==
PROVIDERS: Physician Assistant; Emergency Provider Emergency Medicine; PCP Internal Medicine
DX: R10.13 Epigastric pain (principal); Z85.3 Personal history of malignant neoplasm of breast; F17.210 Nicotine dependence, cigarettes, uncomplicated
CPT/HCPCS: 12345; 36415; 74177; 76705; 80053; 81001; 83690; 85025; 99283; Q9967

== ENCOUNTER → 2020-08-17 07:00 | Day surgery (SDC) | payer MEDICARE, MEDICAID, SELFPAY ==
[2020-08-17] VITALS (9 sets, daily range): BP systolic 114–145; BP diastolic 68–96; PULSE 65–89; RESP 16–18; TEMP 36.9; O2SAT 90–100; BMI 25.4
--- NOTE | 2020-08-17 08:02 | US_ITS ---
WS: [id number] ULTRASOUND-GUIDED LIVER BIOPSY. INDICATION: Liver lesion TECHNIQUE: The procedure including risks benefits, locations were discussed with the patient agreed t o proceed. Timeout was performed. Using sterile technique patient was prepped and draped in usual dori rile fashion. Conscious sedation was administered. After 1% lidocaine, using ultrasound guidance, 4 c ore samples were obtained of the right hepatic lesion with a 14-gauge biopsy device. No immediate com plications. Pathology is pending. Patient left the department 2 hours postprocedure in stable conditi on. US/US biopsy liver [id number] IMPRESSION: Uncomplicated ultrasound-guided liver biopsy. Pathology is pending.
[2020-08-17] MEDS: sodium chloride 0.9% 1,000 ML 75 ML IV (08:06)
[2020-08-17] MEDS: fentaNYL 50 mcg/mL INJ 2mL 25 MCG IVP ×2 (08:11→09:00)
[2020-08-17] MEDS: midazolam 1 mg/mL INJ 2 mL IVP ×2 (08:12→09:00)
[2020-08-17 08:13] LABS: INR 0.83 (0.8-1.2)
[2020-08-17] MEDS: acetaminophen-codeine 300-30mg Tablet 1 TAB PO (10:50)
== END | disposition home or self-care (01) ==
PROVIDERS: Radiology Neuroradiology; PCP Internal Medicine; Visit Provider Internal Medicine
DX: C78.7 Secondary malignant neoplasm of liver and intrahepatic bile duct (principal)
CPT/HCPCS: 36415; 47000; 76942; 85610; 88307; J2250; J3010; J7030

== ENCOUNTER 2020-08-28 13:05 | Outpatient (CLI) | payer MEDICARE, MEDICAID, SELFPAY ==
--- NOTE | 2020-08-28 13:13 | XR_ITS ---
WS: [id number] XR lumbar spine 2-3V* [id number] REASON FOR EXAM: PAIN IN BACK/BREAST CANCER FINDINGS: There are 6 lumbar lumbar vertebral bodies. There is mildly decreased bone density. No significant vertebral body compression deformity is identified. There is severe narrowing of the interspace between the fifth and sixth lumbar vertebral bodies with adjacent osteophytic spurring. Degenerative arthropathic changes seen in the facet joints L2-S1. There is lateral articulation on th e left at L6 S1 XR/XR lumbar spine 2-3V* [id number] IMPRESSION: Degenerative spondylosis as above. No focal bone lesion.
--- NOTE | 2020-08-28 13:13 | XRR_ITS ---
PROCEDURE INFORMATION: Exam: XR Bilateral Hips with Pelvis when Performed Exam date and time: 08/28/2020 1:48 PM Age: 65 years old Clinical indication: Hip pain; Bilateral; Additional info: Pain in bilateral hips/breast cancer TECHNIQUE: Imaging protocol: XR bilateral hips with pelvis when performed. Views: 2 views. COMPARISON: CT abdomen pelvis w con* [id number] 07/28/2020 5:55 PM FINDINGS: Bones/joints: No lytic or blastic skeletal lesions. No acute fracture. Soft tissues: Postoperative change in the abdomen. XR/XR hip BI 3-4V wo/w pel [id number] IMPRESSION: No acute findings.
== END 2020-08-28 13:06 | disposition home or self-care (01) ==
LOC: RAD 13:10
PROVIDERS: PCP Internal Medicine; Visit Provider Internal Medicine
DX: M25.551 Pain in right hip (principal); M25.552 Pain in left hip; C50.919 Malignant neoplasm of unspecified site of unspecified female breast; M47.816 Spondylosis without myelopathy or radiculopathy, lumbar region
CPT/HCPCS: 72100; 73522

== ENCOUNTER 2020-08-29 15:43 | Outpatient (CLI) | payer MEDICARE, MEDICAID, SELFPAY ==
--- NOTE | 2020-08-29 16:54 | ONC FU_ITS ---
Dr. East follow up note Patient: Liz Tyler Unit #: [id number]: 1955 Dicatated By: Edgar East M.D.Date of Visit:Aug 29, 2020 Onc Med Follow-up/Prog Note History of Present Illness: Mrs. Liz Azul, 65-year-old female who was recently diagnosed with infiltrating adenocarcinoma left breast as per patient her routine annual follow-up mammogram done this year showed a spiculated mass in her left breast which was confirmed with a left breast ultrasound done on 04/22/2018 at that time she underwent sonogram guided left breast biopsy which confirmed infiltrating adenocarcinoma, patient underwent left breast excisional biopsy with sentinel lymph node biopsy on 06/05/2018 which showed infiltrating ductal carcinoma but positive inferior and posterior margin and 1 out of 4, positive lymph node. ER/UT positive HER-2/leila negative. Patient underwent reexcision of inferior and posterior margins on 06/24/2018 and final pathology report showed inferior margin involved by microscopic nest of residual tumor whereas posterior margin was free of residual tumor.Oncotype DX showed low risk s/p postlumpectomy radiation in 09/10 and now on adjuvant hormonal therapy with Arimidex vitamin D/calcium, since 07/21/18 Follow-up mammogram done on 04/05/2019 showed BI-RADS 2, benign follow-up mammogram done on April 28, 2020 showed BI-RADS 2, benign Follow-up CT scan of chest ordered by PMD regarding right middle lobe lung nodule on January 31, 2020 showed noncalcified pulmonary nodule in the right upper lobe is increased in size, 8.3 mm compared to 4 mm previously on August 03, 2019. Right middle lobe nodular opacities stable since May 01, 2018. Otherwise no mediastinal or hilar lymphadenopathy Tolerating Arimidex/vitamin D/calcium and weekly Fosamax well Patient underwent follow-up CT scan of chest ordered by her PMD on July 04, 2020 which showed significant enlargement of anterior right upper lobe lobe pulmonary nodules since January 31, 2020 nodule now measures 1.1 x 1.5 cm compared to 8 x 9 mm previously. And also showed new enlarged right paratracheal lymph node measuring about 1.8 cm. And on the scan entire liver is not imaged and appears slightly enlarged. There are few scattered hypodensities throughout the liver which are probably small cysts but too small to characterize no renal mass seen., Patient underwent CT PET scan ordered by her PMD on July 26, 2020 in [place] which showed nodule identified in anterior portion of right upper lobe measuring 1.1 x 1.4 cm shows SUV of 8.5. Inferior to this are other pulmonary micronodules measuring less than 1 cm. No other abnormality seen in the lung but abnormally enlarged right paratracheal lymph nodes are identified measuring 2.2 x 2.3 cm shows abnormal activity with SUV of 9.9. No other enlarged lymph nodes or any other abnormality seen. Abnormal uptake identified in a lesion superiorly and left lobe, larger lesion inferiorly in the right lobe also shows abnormal activity with SUV of 9.6. Came for follow-up, patient denies any specific complaints, no fever chills, no nausea or vomiting, no diarrhea constipation, no hemoptysis hematemesis patient recently quit smoking after knowing about abnormal CT scan and PET scan findings. And liver biopsy which confirmed metastatic adenocarcinoma, as per immunohistochemistry primary is not confirmed yet.Patient underwent liver biopsy recently which shows adenocarcinoma, immunohistochemistry remained inconclusive but possibility of metastatic breast cancer was not ruled out although her primary breast cancer was ER UT positive and metastatic lesion is ER UT negative. Case was discussed with pathologist regarding role of cancer type ID but as her PET scan showed abnormal uptake in right upper lobe as well as right hilar lymph node so pathologist suggested biopsy from right hilar lymph node and if it matches with liver lesion thenitwill be diagnosed as metastatic lung cancer Medications: ClearLax Powder Oral daily PRN, Levothyroxine Sodium 1 (50 mcg) Tablet Oral daily, Meloxicam 1 (15 mg) Tablet Oral daily, Pravastatin Sodium 1 (40 mg) Tablet Oral at bedtime, Prevacid 1 Capsule Capsule Delayed Release Oral daily, Symbicort 2 puff(s) (of 160-4.5 mcg/act) Aerosol Inhalation b.i.d., TraZODone HCl 1 (100 mg) Tablet Oral at bedtime, Wellbutrin SR 1 Tablet (of 150 mg) Tablet SR 12 HR Oral daily Allergies: Codeine Sulfate Review of Systems: Review of Systems is not available for this patient. Vital Signs: Performed on Aug 29, 2020 15:52 Height - 63.00 in Weight - 143.4 lbs (LOW) BSA - 1.68 sq.m BMI - 25.40 Temperature - 99.0 F (HIGH) Pulse - 74 /min Respiration - 24 /min BP - 124/84 mm(hg) O2 Sat - 96 % Pain - 0 Performance Status: 0 - Fully active, able to carry on all predisease activities without restrictions. (ECOG) Physical Examination: Respiratory - Lungs are clear to auscultation, Cardiovascular - Regular rate and rhythm of heart, Gastrointestinal - Soft, bowel sounds present, Extremities - No visible edema or rash. Lab/Imaging: Most recent lab results are not available for this patient. Impression: Metastatic adenocarcinoma per liver biopsy done on August 17, 2020, immunohistochemistry positive for CK 7, CK 20, E CAD, but negative for CDX 2, Napsin, p63, TTF-1, estrogen receptor, progesterone receptors and Glypican-3. CT PET scan done on July 26, 2020 showed nodule identified in anterior portion of right upper lobe measuring 1.1 x 1.4 cm with SUV of 8.5 and abnormally enlarged right paratracheal lymph nodes size 2.2 x 2.3 cm with SUV of 9.9 no other abnormality seen in the lung but in the liver abnormal uptake identified in the lesion superiorly and left lobe. Larger lesion inferiorly in the right lobe also shows abnormal activity with SUV of 9.6. No other abnormality seen. Infiltrating ductal carcinoma involving left breast per biopsy and sentinel lymph node done on 06/05/2018 followed by reexcision on 06/24/2018 for positive inferior and posterior margin and final pathology report showed persistent positive inferior margin but posterior margin was cleared. Next Size of tumor 3.2 x 2.6 cm, T2 1 out of 4, positive sentinel lymph node pN1 (SN) ER 98%, UT 95%, HER-2/leila negative stage IIB Oncotype DX score 10 e.g. low risk and 5 years risk of recurrence after 5 years of hormone therapy is about 9% Status post postlumpectomy radiation therapy in August 2018 Starting Arimidex 1 mg on 07/21/2018 for 5 years Along with vitamin D and calcium supplements Mammogram done on 04/05/2019 showed her BI-RADS 2 DEXA scan done on 10/25/2019 showed osteopenia, FRAX calculated at 10 years probability for major osteoporotic fracture is 16.6% and osteoporotic hip fracture is 3.8% and patient is on aromatase inhibitor which promote bone demineralization, because of that she was started on preventive dose of Fosamax, 35 mg by mouth weekly on 12/29/2019 Plan: Discussed with patient regarding her liver biopsy report as well as abnormal CT scan of the chest which was done on July 04, [address] PET scan which was done on July 26, 2020, her liver biopsy was done on August 17, 2020 which confirmed metastatic carcinoma and immunohistochemistry stains remained inconclusive. Case was discussed with pathologist on August 28, 2020 and he recommended bronchoscopy and biopsy from right hilar lesion and if it matches with the liver lesion then metastatic lung cancer will be the final diagnosis otherwise we will consider cancer type ID on the liver lesion. Discussed with patient and her daughter and both expressed full understanding and agreed with referral to pulmonology for bronchoscopy and right paratracheal lymph node biopsy. All the questions were answered to their satisfaction and copies of CT scan and PET scan were provided. And patient will return to clinic 1 week after lung biopsy for further discussion. Signed By: Edgar East M.D. <<Signature on File>>
== END 2020-08-29 15:44 | disposition home or self-care (01) ==
LOC: ONCMED 15:47
PROVIDERS: PCP Internal Medicine; Visit Provider Internal Medicine Hematology & Oncology
DX: C78.7 Secondary malignant neoplasm of liver and intrahepatic bile duct (principal); C80.1 Malignant (primary) neoplasm, unspecified; C50.212 Malignant neoplasm of upper-inner quadrant of left female breast; C77.3 Secondary and unspecified malignant neoplasm of axilla and upper limb lymph nodes; R91.8 Other nonspecific abnormal finding of lung field; Z17.0 Estrogen receptor positive status [ER+]; M85.80 Other specified disorders of bone density and structure, unspecified site; Z92.3 Personal history of irradiation; Z79.811 Long term (current) use of aromatase inhibitors
CPT/HCPCS: 99214

== ENCOUNTER → 2020-09-05 16:27 | Outpatient (BNVA) | payer MEDICARE, MEDICAID, SELFPAY | PROVIDERS: PCP Internal Medicine; Visit Provider Internal Medicine Critical Care Medicine | DX: Z11.59 Encounter for screening for other viral diseases (principal) | CPT/HCPCS: 87635 ==

== ENCOUNTER 2020-09-08 05:52 | Day surgery (SDC) | payer MEDICARE, MEDICAID, SELFPAY ==
[2020-09-07 17:57] VITALS: BMI 25.4
[2020-09-08] VITALS (7 sets, daily range): BP systolic 115–142; BP diastolic 74–92; PULSE 76–89; RESP 16–20; TEMP 36.2–36.7; O2SAT 95–99
--- NOTE | 2020-09-08 06:42 | ANES.PREANE2 ---
Pre-Anesthetic Assessment Pre-Anesthetic Assessment: Height/Weight: Height 1.6 m Weight 65.317 kg Temp Pulse Resp BP Pulse Ox 98.1 F 79 18 142/92 96 09/08/20 06:10 09/08/20 06:10 09/08/20 06:10 09/08/20 06:10 09/08/20 06:10 Preop Diagnosis: Suspected lung cancer Proposed Procedure: Operation Date: 09/08/20 07:00 Proposed Procedures p Ebus(Not Applicable) - Rubin Gustafson MD Familial anesthetic complications: none Was Beta Kalen taken within 24 hours: N/A Last intake: Intake Last Liquid Date 09/07/20 Last Liquid Time 19:00 Last Solid Date 09/07/20 Last Solid Time 19:00 Social: Social History: Tobacco Exam: Pre-Anes Outpt Exam: alert, oriented x 3, clear to auscultation bilaterally and regular rate & rhythm Airway: Cervical ROM: WNL MP: 2 Dentition: False Pulmonary: Pulmonary: Asthma and COPD Comments: lung nodule GI: GI: GERD Metabolic: Metabolic: Thyroid Musc/skel: Comments: osteopenia Anesthetic Plan: ASA status: 3 Anesthesia: General Risk of > 500 ml blood loss (7ml/kg in children): No PFSH Anesthesia PFSH: Medical History (Updated 09/05/20 @ 15:40 by Rubin Gustafson MD) Hx of breast cancer Family History Other CAD (coronary artery disease) Cancer Social History Smoking and tobacco status: current every day smoker cigarettes Packs smoked per day: 2 Years cigarettes smoked: 52 Alcohol intake: never Lives independently: Yes Household members: none Marital status: Current occupational status: disabled History of recent travel: No Current gender identity: Female Data Anesthesia Cardiac Studies: No Data to Display
--- NOTE | 2020-09-08 07:00 | W.PM.OPSUD ---
Surgery/Procedure H&P Update DATE OF PROCEDURE: September 08, 2020 DATE H&P PERFORMED: 09/05/20 H&P UPDATE INFORMATION: I have reviewed H&P completed within last 30 days, I have examined patient prior to procedure and No changes to prior documentation PREOP DIAGNOSIS: Suspected lung cancer PLANNED PROCEDURE: Bronchoscopy, EBUS Operation Date: 09/08/20 07:00 Proposed Procedures p Ebus(Not Applicable) - Rubin Gustafson MD
[2020-09-08] MEDS: lidocaine 1% INJ 20 mL XX (07:12)
--- NOTE | 2020-09-08 07:45 | P.OP_ITS ---
Operative Report Date of procedure: September 08, 2020 Pre-op Diagnosis: Suspected lung cancer Post-op diagnosis: same Brief History: This is a 65-year-old lady with suspected metastatic lung cancer coming in for bronchoscopic evaluation Procedure: Name of the procedure: Bronchoscopy with inspection of the airway, endobronchial ultrasound-guided transbronchial needle aspiration of lymph nodes and control of bleeding. Indication: Suspected metastatic lung cancer Anesthesia: General anesthesia. Local anesthesia: The kimmy in the right and left mainstem bronchi were anesthetized with 1% lidocaine, 3 mL. Description of the procedure: The procedure was explained to the patient and the consent was obtained. The patient was brought to the OR. The patient underwent endotracheal intubation for general anesthesia. Following induction of general anesthesia, the bronchoscope was advanced through the ET tube. The lower trachea appeared to be normal. The kimmy was sharp. The kimmy, the right and left mainstem bronchi are anesthetized with 1% lidocaine. In a systematic manner bilateral bronchial tree was then examined. The bronchoscope was advanced into the left mainstem bronchus. There was no erythema,mucus or areas of cobblestoning. The left upper lobe, lingula and left lower lobe bronchi were examined up to the third subsegmental level and no abnormalities were ident ified. There is no endobronchial lesion, active bleeding or mucous plug. The bronchoscope was then introduced into the right mainstem bronchus. The right upper lobe, right middle lobe and right lower lobe bronchi were examined up to the third subsegmental level and no abnormalities were identified. The endobronchial ultrasound was introduced through the ET tube. Mediastinal and hilar lymphadenopathy was identified with the ultrasound. Transbronchial needle aspiration was performed from 4Rlymph node. Samples: 1. The transbronchial needle aspiration of the aforementioned lymph node groups were sent for cytology and histopathology. Complications: There was no immediate complications. The patient was extubated and brought to the PACU in stable condition.
--- NOTE | 2020-09-08 07:47 | SUR.OPER ---
ebus balloon removed intact
--- NOTE | 2020-09-08 07:58 | SUR.PHASEI ---
PT TO PACU AWAKES TO VOICE GOOD RESP EFFORT VSS HOB AT 40 DEGREES, PT NOT COUGHING MUCH, SLEEPS IF NOT DISTURBED, WARM BLANKETS TO PT/
--- NOTE | 2020-09-08 08:32 | PTH.EBUS ---
Endobronchial Ultrasound Specimen(s): Lymph node station 4R Gross: The specimen is received fresh in the operating room 2 for an immediate rapid onsite evaluation. The specimen consists of 2 small pieces of dorman-white tissue measuring 0.1 cm in greatest dimension. 2 Diff-Quik slides are made and the rest is submitted in formalin. Preliminary Impression: Lymph node, station 4R, fine-needle aspiration biopsy: ?Few atypical clusters in a background of lymphoid tissue and necrosis. ?Adequate sampling done to save material for permanent fixation. - Specimen Information Pathologist: Isela Escobar Date: 09/08/20 Specimen reported at what time: 07:20 - Clinician Specimen collection time: 07:12 Clinician reported to: Rubin Gustafson
[2020-09-08] MEDS: sodium chloride 0.9% 1,000 ML 30 ML IV (08:48)
--- NOTE | 2020-09-08 09:05 | ANE.PACU2 ---
Inpatient post-anesthesia follow up: Airway intact: Yes Vital signs: Temperature 97.3 F Pulse Rate 76 Respiratory Rate 18 Blood Pressure 119/91 Pulse Oximetry 95 Oxygen Delivery Me thod Room Air Oxygen Flow Rate 8 Fraction of Inspir ed Oxygen Hydration adequate: Yes Nausea and vomiting: No Pain level: 2 Mental status: Baseline
== END 2020-09-08 09:07 | disposition home or self-care (01) ==
PROVIDERS: PCP Internal Medicine; Visit Provider Internal Medicine Critical Care Medicine
PROC: BB4BZZZ Ultrasonography of Pleura (ICD-10-PCS; principal; 2020-09-08 07:00)
DX: C34.90 Malignant neoplasm of unspecified part of unspecified bronchus or lung (principal); J44.9 Chronic obstructive pulmonary disease, unspecified; K21.9 Gastro-esophageal reflux disease without esophagitis; Z85.3 Personal history of malignant neoplasm of breast; F17.210 Nicotine dependence, cigarettes, uncomplicated
CPT/HCPCS: 12345; 31627; 31628; 80500; 88305; J2250; J2405; J2704; J2710; J3010; J3490; J7030

== ENCOUNTER 2020-10-02 06:13 | Outpatient (CLI) | payer MEDICARE, MEDICAID, SELFPAY ==
[2020-10-02 10:12] LABS: Basophils % 0.3 %; Eosinophils # 0.3 10^3/uL (0.0-0.8); Eosinophils % 4.5 %; Hematocrit 41.3 % (37.0-47.0); Lymphocytes % 15.1 %; Mean Corpuscular HGB Conc 31.5 g/dL (30.0-36.0); Mean Corpuscular Hemoglobin 29.6 pg (28.0-34.0); Mean Corpuscular Volume 94.1 fL (81-99); Mean Platelet Volume 10.7 fL (7.4-10.4); Monocytes # 0.8 10^3/uL (0.2-0.9); Monocytes % 12.5 %; Neutrophils # 4.37 10^3/uL (1.8-7.7); Neutrophils % 67.3 %; Nucleated Red Blood Cells % 0 %; Platelet Count 197 10^3/cmm (130-400); Red Blood Count 4.39 10^6/uL (4.1-5.3); White Blood Count 6.5 10^3/uL (4.0-10.0)
[2020-10-02 10:38] LABS: Alanine Aminotransferase 9 U/L (0-33); Albumin Level 4.3 g/dL (3.5-5.2); Alkaline Phosphatase 152 IU/L (35-105); Anion Gap 12.2 (5-19); Aspartate Amino Transferase 19 U/L (0-32); Blood Urea Nitrogen 18 mg/dL (8-23); Calcium 9.6 mg/dL (8.5-10.5); Carbon Dioxide 30 mmol/L (22-29); Chloride 104 mmol/L (98-107); Globulin 2.8 g/dL (1.3-4.6); Glomerular Filtration Rate 62.6 mL/min (90-130); Glucose 83 mg/dL (65-115); Osmolality Calculated 295 mOsm/kg (285-295); Potassium 4.2 mmol/L (3.5-5.1); Sodium 142 mmol/L (136-145); Total Bilirubin 0.2 mg/dL (0.15-1.2); Total Protein 7.1 g/dL (6.6-8.7)
== END 2020-10-02 06:14 | disposition home or self-care (01) ==
PROVIDERS: PCP Internal Medicine; Visit Provider Internal Medicine Hematology & Oncology
DX: C50.212 Malignant neoplasm of upper-inner quadrant of left female breast (principal); Z17.0 Estrogen receptor positive status [ER+]
CPT/HCPCS: 36415; 80053; 85025

== ENCOUNTER 2020-10-03 05:48 | Outpatient (CLI) | payer MEDICARE, MEDICAID, SELFPAY ==
--- NOTE | 2020-10-03 09:14 | ONC FU_ITS ---
Dr. East follow up note Patient: Liz Tyler Unit #: [id number]: 1955 Dicatated By: Edgar East M.D.Date of Visit:Oct 03, 2020 Onc Med Follow-up/Prog Note History of Present Illness: Mrs. Liz Azul, 65-year-old female who was recently diagnosed with infiltrating adenocarcinoma left breast as per patient her routine annual follow-up mammogram done this year showed a spiculated mass in her left breast which was confirmed with a left breast ultrasound done on 04/22/2018 at that time she underwent sonogram guided left breast biopsy which confirmed infiltrating adenocarcinoma, patient underwent left breast excisional biopsy with sentinel lymph node biopsy on 06/05/2018 which showed infiltrating ductal carcinoma but positive inferior and posterior margin and 1 out of 4, positive lymph node. ER/NV positive HER-2/leila negative. Patient underwent reexcision of inferior and posterior margins on 06/24/2018 and final pathology report showed inferior margin involved by microscopic nest of residual tumor whereas posterior margin was free of residual tumor.Oncotype DX showed low risk s/p postlumpectomy radiation in 09/10 and now on adjuvant hormonal therapy with Arimidex vitamin D/calcium, since 07/21/18 Follow-up mammogram done on 04/05/2019 showed BI-RADS 2, benign follow-up mammogram done on April 28, 2020 showed BI-RADS 2, benign Follow-up CT scan of chest ordered by PMD regarding right middle lobe lung nodule on January 31, 2020 showed noncalcified pulmonary nodule in the right upper lobe is increased in size, 8.3 mm compared to 4 mm previously on August 03, 2019. Right middle lobe nodular opacities stable since May 01, 2018. Otherwise no mediastinal or hilar lymphadenopathy Tolerating Arimidex/vitamin D/calcium and weekly Fosamax well Patient underwent follow-up CT scan of chest ordered by her PMD on July 04, 2020 which showed significant enlargement of anterior right upper lobe lobe pulmonary nodules since January 31, 2020 nodule now measures 1.1 x 1.5 cm compared to 8 x 9 mm previously. And also showed new enlarged right paratracheal lymph node measuring about 1.8 cm. And on the scan entire liver is not imaged and appears slightly enlarged. There are few scattered hypodensities throughout the liver which are probably small cysts but too small to characterize no renal mass seen., Patient underwent CT PET scan ordered by her PMD on July 26, 2020 in [place] which showed nodule identified in anterior portion of right upper lobe measuring 1.1 x 1.4 cm shows SUV of 8.5. Inferior to this are other pulmonary micronodules measuring less than 1 cm. No other abnormality seen in the lung but abnormally enlarged right paratracheal lymph nodes are identified measuring 2.2 x 2.3 cm shows abnormal activity with SUV of 9.9. No other enlarged lymph nodes or any other abnormality seen. Abnormal uptake identified in a lesion superiorly and left lobe, larger lesion inferiorly in the right lobe also shows abnormal activity with SUV of 9.6. Came for follow-up, patient denies any specific complaints, no fever chills, no nausea or vomiting, no diarrhea constipation, no hemoptysis hematemesis patient recently quit smoking after knowing about abnormal CT scan and PET scan findings. And liver biopsy which confirmed metastatic adenocarcinoma, as per immunohistochemistry primary is not confirmed yet.Patient underwent liver biopsy recently which shows adenocarcinoma, immunohistochemistry remained inconclusive but possibility of metastatic breast cancer was not ruled out although her primary breast cancer was ER NV positive and metastatic lesion is ER NV negative. 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 But Chromogranin A, negative, synaptophysin, weak positive with again indicating neuroendocrine differentiation. Cancer type ID is pending Came for follow-up, denies any specific complaint except chronic cough, patient is active smoker, denies any hemoptysis or hematemesis, denies any facial flushing, denies any diarrhea but no wheezing for which, as per patient she was given new inhalers by Dr. Gustafson, which is helping her. Denies any headaches or blurred vision or double vision, denies any abdominal pain. Medications: ClearLax Powder Oral daily PRN, Levothyroxine Sodium 1 (50 mcg) Tablet Oral daily, Meloxicam 1 (15 mg) Tablet Oral daily, Pravastatin Sodium 1 (40 mg) Tablet Oral at bedtime, Prevacid 1 Capsule Capsule Delayed Release Oral daily, TraZODone HCl 1 (100 mg) Tablet Oral at bedtime, Wellbutrin SR 1 Tablet (of 150 mg) Tablet SR 12 HR Oral daily Allergies: Codeine Sulfate Review of Systems: Constitutional - Appetite is good and weight is stable. No fever, chills, hot flashes, or night sweats. Energy level is fair, ENMT - No sinus congestion/drainage. No mouth sores. No sore throat or difficulty swallowing, Hematologic/Lymphatic - No abnormal bruising or bleeding, Respiratory - Positive for shortness of breath. Frequent white phlegm productive cough. No pleuritic pain or hemoptysis, Cardiovascular - No angina pain. No palpitations, Gastrointestinal - No nausea or vomiting. No heartburn or acid reflux. No diarrhea or constipation. No blood in the stool or black stools, Genitourinary (F) - No dysuria or hematuria. No urinary frequency. No urgency or incontinence, Musculoskeletal - No joint or bone pain, Neurologic - No headache or dizziness. No numbness/paresthesias or other focal neurologic symptoms, Psychiatric - No anxiety or depression. No insomnia. Vital Signs: Performed on Oct 03, 2020 08:26 Height - 63.00 in Weight - 144.2 lbs (HIGH) BSA - 1.68 sq.m BMI - 25.54 Temperature - 99.0 F (HIGH) Pulse - 72 /min Respiration - 20 /min BP - 141/92 mm(hg) (HIGH) O2 Sat - 95 % (LOW) Pain - 5 Performance Status: 0 - Fully active, able to carry on all predisease activities without restrictions. (ECOG) Physical Examination: Respiratory - Mild wheezing bilaterally, poor air entry, Cardiovascular - Regular rate and rhythm of heart, Gastrointestinal - Soft, bowel sounds present, Extremities - No visible edema or rash. Lab/Imaging: Test performed on Oct 02, 2020 09:58 Sodium 142 mmol/L Potassium 4.2 mmol/L Chloride 104 mmol/L CO2 30 mmol/L Anion Gap 12.2 BUN 18 mg/dL Creatinine 0.9 mg/dL Cr Clearance (Est) 63.1400 mL/min eGFR 62.6 mL/min Glucose 83 mg/dL Osmolality - Calculated 295 mOsm/kg Calcium 9.6 mg/dL Protein, Total 7.1 g/dL Albumin 4.3 g/dL Globulin 2.8 g/dL Bilirubin, Total 0.2 mg/dL ALT (SGPT) 9 U/L AST (SGOT) 19 U/L Alkaline Phosphatase 152 IU/L WBC 6.5 10 3/uL RBC 4.39 10 6/uL HGB 13.0 g/dL HCT 41.3 % MCV 94.1 fL MCH 29.6 pg MCHC 31.5 g/dL RDW 14.0 % Platelet Count 197 10 3/cmm MPV 10.7 fL Neutrophils 4.37 10 3/uL Lymphocytes 1.0 10 3/uL Monocytes 0.8 10 3/uL Eosinophils 0.3 10 3/uL Basophils 0.0 10 3/uL Neutrophil % 67.3 % Lymphocyte % 15.1 % Monocyte % 12.5 % Eosinophil % 4.5 % Basophils % 0.3 % NRBC % 0 % Impression: Metastatic adenocarcinoma per liver biopsy done on August 17, 2020, immunohistochemistry positive for CK 7, CK 20, E CAD, but negative for CDX 2, Napsin, p63, TTF-1, estrogen receptor, progesterone receptors and Glypican-3. CT PET scan done on July 26, 2020 showed nodule identified in anterior portion of right upper lobe measuring 1.1 x 1.4 cm with SUV of 8.5 and abnormally enlarged right paratracheal lymph nodes size 2.2 x 2.3 cm with SUV of 9.9 no other abnormality seen in the lung but in the liver abnormal uptake identified in the lesion superiorly and left lobe. Larger lesion inferiorly in the right lobe also shows abnormal activity with SUV of 9.6. No other abnormality seen. 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 Infiltrating ductal carcinoma involving left breast per biopsy and sentinel lymph node done on 06/05/2018 followed by reexcision on 06/24/2018 for positive inferior and posterior margin and final pathology report showed persistent positive inferior margin but posterior margin was cleared. Next Size of tumor 3.2 x 2.6 cm, T2 1 out of 4, positive sentinel lymph node pN1 (SN) ER 98%, NV 95%, HER-2/leila negative stage IIB Oncotype DX score 10 e.g. low risk and 5 years risk of recurrence after 5 years of hormone therapy is about 9% Status post postlumpectomy radiation therapy in August 2018 Starting Arimidex 1 mg on 07/21/2018 for 5 years Along with vitamin D and calcium supplements Mammogram done on 04/05/2019 showed her BI-RADS 2 DEXA scan done on 10/25/2019 showed osteopenia, FRAX calculated at 10 years probability for major osteoporotic fracture is 16.6% and osteoporotic hip fracture is 3.8% and patient is on aromatase inhibitor which promote bone demineralization, because of that she was started on preventive dose of Fosamax, 35 mg by mouth weekly on 12/29/2019 Plan: Discussed with patient regarding her labs white blood count 6.5 hemoglobin 13 hematocrit 41.3 platelets 197,000 CMP within normal limits and transbronchial biopsy which was done recently showed 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 So we will discuss with pathology regarding mitotic index if is high, we will treat this as aggressive neuroendocrine tumor probably with carboplatin/etoposide based regimen And also request Port-A-Cath placement, on the other hand if mitotic index is low then will wait for cancer type ID to decide about treatment plan as patient may have mixed histology with neuroendocrine differentiation. Patient will return to clinic in 1 week, in the meantime ,we will request pathology to calculate mitotic index Signed By: Edgar East M.D. <<Signature on File>>
== END 2020-10-03 05:49 | disposition home or self-care (01) ==
LOC: ONCMED 05:50
PROVIDERS: PCP Internal Medicine; Visit Provider Internal Medicine Hematology & Oncology
DX: C80.1 Malignant (primary) neoplasm, unspecified (principal); C50.212 Malignant neoplasm of upper-inner quadrant of left female breast; C78.7 Secondary malignant neoplasm of liver and intrahepatic bile duct; C77.1 Secondary and unspecified malignant neoplasm of intrathoracic lymph nodes; R91.1 Solitary pulmonary nodule; Z79.811 Long term (current) use of aromatase inhibitors; Z92.3 Personal history of irradiation; Z17.0 Estrogen receptor positive status [ER+]
CPT/HCPCS: 99214

== ENCOUNTER 2020-10-10 06:09 | Outpatient (CLI) | payer MEDICARE, MEDICAID, SELFPAY ==
[2020-10-10 10:10] LABS: Basophils % 0.3 %; Eosinophils # 0.2 10^3/uL (0.0-0.8); Eosinophils % 2.5 %; Hematocrit 41.3 % (37.0-47.0); Hemoglobin 13.4 g/dL (11.5-15.3); Lymphocytes # 1.1 10^3/uL (0.8-4.8); Lymphocytes % 16.5 %; Mean Corpuscular HGB Conc 32.4 g/dL (30.0-36.0); Mean Corpuscular Hemoglobin 29.8 pg (28.0-34.0); Mean Platelet Volume 10.3 fL (7.4-10.4); Monocytes # 0.8 10^3/uL (0.2-0.9); Monocytes % 12.4 %; Neutrophils % 67.9 %; Nucleated Red Blood Cells % 0 %; Platelet Count 207 10^3/cmm (130-400); Red Blood Count 4.49 10^6/uL (4.1-5.3); White Blood Count 6.8 10^3/uL (4.0-10.0)
[2020-10-10 10:19] LABS: Alanine Aminotransferase 12 U/L (0-33); Albumin Level 4.4 g/dL (3.5-5.2); Alkaline Phosphatase 153 IU/L (35-105); Anion Gap 16.3 (5-19); Aspartate Amino Transferase 17 U/L (0-32); Blood Urea Nitrogen 14 mg/dL (8-23); Calcium 9.7 mg/dL (8.5-10.5); Carbon Dioxide 26 mmol/L (22-29); Chloride 101 mmol/L (98-107); Globulin 2.7 g/dL (1.3-4.6); Glomerular Filtration Rate 83.7 mL/min (90-130); Glucose 78 mg/dL (65-115); Osmolality Calculated 287 mOsm/kg (285-295); Potassium 4.3 mmol/L (3.5-5.1); Sodium 139 mmol/L (136-145); Total Bilirubin 0.3 mg/dL (0.15-1.2); Total Protein 7.1 g/dL (6.6-8.7)
== END 2020-10-10 06:10 | disposition home or self-care (01) ==
LOC: ONCMED 06:12
PROVIDERS: PCP Internal Medicine; Visit Provider Nurse Practitioner
DX: C50.212 Malignant neoplasm of upper-inner quadrant of left female breast (principal)
CPT/HCPCS: 36415; 80053; 85025

== ENCOUNTER 2020-10-13 07:18 | Outpatient (CLI) | payer MEDICARE, MEDICAID, SELFPAY ==
[2020-10-13 11:46] LABS: Basophils % 0.3 %; Eosinophils # 0.2 10^3/uL (0.0-0.8); Eosinophils % 2.8 %; Hematocrit 41.8 % (37.0-47.0); Hemoglobin 13.4 g/dL (11.5-15.3); Lymphocytes # 1.1 10^3/uL (0.8-4.8); Lymphocytes % 17.4 %; Mean Corpuscular HGB Conc 32.1 g/dL (30.0-36.0); Mean Corpuscular Hemoglobin 29.8 pg (28.0-34.0); Mean Corpuscular Volume 93.1 fL (81-99); Mean Platelet Volume 10.7 fL (7.4-10.4); Monocytes # 1.1 10^3/uL (0.2-0.9); Monocytes % 16.6 %; Neutrophils # 3.97 10^3/uL (1.8-7.7); Neutrophils % 62.6 %; Nucleated Red Blood Cells % 0 %; Platelet Count 220 10^3/cmm (130-400); Red Blood Count 4.49 10^6/uL (4.1-5.3); Red Cell Distribution Width 14.2 % (12.1-15.1); White Blood Count 6.3 10^3/uL (4.0-10.0)
[2020-10-13 12:14] LABS: Alanine Aminotransferase 11 U/L (0-33); Albumin Level 4.3 g/dL (3.5-5.2); Alkaline Phosphatase 146 IU/L (35-105); Anion Gap 13.9 (5-19); Aspartate Amino Transferase 20 U/L (0-32); Blood Urea Nitrogen 17 mg/dL (8-23); Calcium 9.4 mg/dL (8.5-10.5); Carbon Dioxide 26 mmol/L (22-29); Chloride 102 mmol/L (98-107); Globulin 2.7 g/dL (1.3-4.6); Glomerular Filtration Rate 62.6 mL/min (90-130); Glucose 91 mg/dL (65-115); Osmolality Calculated 287 mOsm/kg (285-295); Potassium 3.9 mmol/L (3.5-5.1); Sodium 138 mmol/L (136-145); Total Bilirubin 0.3 mg/dL (0.15-1.2)
--- NOTE | 2020-10-13 12:56 | ONC FU_ITS ---
Dr. East follow up note Patient: Liz Tyler Unit #: [id number]: [id number] Dicatated By: Edgar East M.D.Date of Visit:Oct 13, 2020 Onc Med Follow-up/Prog Note History of Present Illness: Mrs. 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 Mrs Azul states during her routine annual follow-up mammogram done this year, a spiculated mass in her left breast was discovered. A left breast ultrasound done on 04/22/2018 at which time she also underwent sonogram guided left breast biopsy which confirmed infiltrating adenocarcinoma. Mrs Azul underwent left breast excisional biopsy with sentinel lymph node biopsy on 06/05/2018 which showed infiltrating ductal carcinoma but positive inferior and posterior margin and 1 out of 4, positive lymph node. ER/UT positive HER-2/leila negative. She underwent reexcision of inferior and posterior margins on 06/24/2018. The final pathology report showed inferior margin involved by microscopic nest of residual tumor whereas posterior margin was free of residual tumor.Oncotype DX showed low risk s/p postlumpectomy radiation in 09/10 and now on adjuvant hormonal therapy with Arimidex vitamin D/calcium, since 07/21/18 Follow-up mammogram done on 04/05/2019 showed BI-RADS 2, benign follow-up mammogram done on April 28, 2020 showed BI-RADS 2, benign Follow-up CT scan of chest ordered by PMD regarding right middle lobe lung nodule on January 31, 2020 showed noncalcified pulmonary nodule in the right upper lobe is increased in size, 8.3 mm compared to 4 mm previously on August 03, 2019. Right middle lobe nodular opacities stable since May 01, 2018. Otherwise no mediastinal or hilar lymphadenopathy Tolerating Arimidex/vitamin D/calcium and weekly Fosamax well Patient underwent follow-up CT scan of chest ordered by her PMD on July 04, 2020 which showed significant enlargement of anterior right upper lobe lobe pulmonary nodules since January 31, 2020 nodule now measures 1.1 x 1.5 cm compared to 8 x 9 mm previously. And also showed new enlarged right paratracheal lymph node measuring about 1.8 cm. And on the scan entire liver is not imaged and appears slightly enlarged. There are few scattered hypodensities throughout the liver which are probably small cysts but too small to characterize no renal mass seen., Patient underwent CT PET scan ordered by her PMD on July 26, 2020 in [place] which showed nodule identified in anterior portion of right upper lobe measuring 1.1 x 1.4 cm shows SUV of 8.5. Inferior to this are other pulmonary micronodules measuring less than 1 cm. No other abnormality seen in the lung but abnormally enlarged right paratracheal lymph nodes are identified measuring 2.2 x 2.3 cm shows abnormal activity with SUV of 9.9. No other enlarged lymph nodes or any other abnormality seen. Abnormal uptake identified in a lesion superiorly and left lobe, larger lesion inferiorly in the right lobe also shows abnormal activity with SUV of 9.6. Patient underwent liver biopsy recently which shows adenocarcinoma, immunohistochemistry remained inconclusive but possibility of metastatic breast cancer was not ruled out although her primary breast cancer was ER UT positive and metastatic lesion is ER UT negative. Case was discussed with pathologist regarding role of cancer type ID but as her PET scan showed abnormal uptake in right upper lobe as well as right hilar lymph node so pathologist suggested biopsy from right hilar lymph node and if it matches with liver lesion then it will be diagnosed as metastatic lung cancer. 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 The immunohistochemistry positive for CD56, indicating neuroendocrine differentiation. But Chromogranin A, negative, synaptophysin, weak positive with again indicating neuroendocrine differentiation. Pathology was requested to do mitotic index to confirm aggressive neuroendocrine versus low-grade, on October 03, 2020. Case was discussed with pathology again on October 12, 2020, mitotic index was pending Came for follow-up, denies any specific complaints, no fever chills, no nausea or vomiting, no diarrhea constipation, no headaches blurred vision double vision, no abdominal pain, no jaundice, no hemoptysis or hematemesis, appetite is good, patient still smoking about a pack a day Medications: ClearLax Powder Oral daily PRN, Levothyroxine Sodium 1 (50 mcg) Tablet Oral daily, Meloxicam 1 (15 mg) Tablet Oral daily, Pravastatin Sodium 1 (40 mg) Tablet Oral at bedtime, Prevacid 1 Capsule Capsule Delayed Release Oral daily, TraZODone HCl 1 (100 mg) Tablet Oral at bedtime, Wellbutrin SR 1 Tablet (of 150 mg) Tablet SR 12 HR Oral daily Allergies: Codeine Sulfate Review of Systems: Review of Systems is not available for this patient. Vital Signs: Performed on Oct 13, 2020 11:43 Height - 63.00 in Weight - 141.4 lbs (LOW) BSA - 1.67 sq.m BMI - 25.05 Temperature - 98.5 F Pulse - 84 /min Respiration - 24 /min BP - 116/78 mm(hg) O2 Sat - 98 % Pain - 0 Performance Status: 0 - Fully active, able to carry on all predisease activities without restrictions. (ECOG) Physical Examination: Respiratory - Lungs are clear to auscultation, Cardiovascular - Regular rate and rhythm of heart, Gastrointestinal - Soft, bowel sounds present, Extremities - No visible edema or rash. Lab/Imaging: Test performed on Oct 10, 2020 09:22 Sodium 139 mmol/L Potassium 4.3 mmol/L Chloride 101 mmol/L CO2 26 mmol/L Anion Gap 16.3 BUN 14 mg/dL Creatinine 0.7 mg/dL Cr Clearance (Est) 81.9700 mL/min eGFR 83.7 mL/min Glucose 78 mg/dL Osmolality - Calculated 287 mOsm/kg Calcium 9.7 mg/dL Protein, Total 7.1 g/dL Albumin 4.4 g/dL Globulin 2.7 g/dL Bilirubin, Total 0.3 mg/dL ALT (SGPT) 12 U/L AST (SGOT) 17 U/L Alkaline Phosphatase 153 IU/L WBC 6.8 10 3/uL RBC 4.49 10 6/uL HGB 13.4 g/dL HCT 41.3 % MCV 92.0 fL MCH 29.8 pg MCHC 32.4 g/dL RDW 14.0 % Platelet Count 207 10 3/cmm MPV 10.3 fL Neutrophils 4.60 10 3/uL Lymphocytes 1.1 10 3/uL Monocytes 0.8 10 3/uL Eosinophils 0.2 10 3/uL Basophils 0.0 10 3/uL Neutrophil % 67.9 % Lymphocyte % 16.5 % Monocyte % 12.4 % Eosinophil % 2.5 % Basophils % 0.3 % NRBC % 0 % Impression: Metastatic adenocarcinoma per liver biopsy done on August 17, 2020, immunohistochemistry positive for CK 7, CK 20, E CAD, but negative for CDX 2, Napsin, p63, TTF-1, estrogen receptor, progesterone receptors and Glypican-3. CT PET scan done on July 26, 2020 showed nodule identified in anterior portion of right upper lobe measuring 1.1 x 1.4 cm with SUV of 8.5 and abnormally enlarged right paratracheal lymph nodes size 2.2 x 2.3 cm with SUV of 9.9 no other abnormality seen in the lung but in the liver abnormal uptake identified in the lesion superiorly and left lobe. Larger lesion inferiorly in the right lobe also shows abnormal activity with SUV of 9.6. No other abnormality seen. 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, immunohistochemistry positive for CD56, synaptophysin, CK7, CK cocktail, weakly positive for p63, and negative for CK20, as per pathology histology is similar to prior liver biopsy sample and suggestive of lung primary with mets to the lymph node as well as liver , Mitotic indexAnd molecular profiling is pending Infiltrating ductal carcinoma involving left breast per biopsy and sentinel lymph node done on 06/05/2018 followed by reexcision on 06/24/2018 for positive inferior and posterior margin and final pathology report showed persistent positive inferior margin but posterior margin was cleared. Next Size of tumor 3.2 x 2.6 cm, T2 1 out of 4, positive sentinel lymph node pN1 (SN) ER 98%, UT 95%, HER-2/leila negative stage IIB Oncotype DX score 10 e.g. low risk and 5 years risk of recurrence after 5 years of hormone therapy is about 9% Status post postlumpectomy radiation therapy in August 2018 Starting Arimidex 1 mg on 07/21/2018 for 5 years Along with vitamin D and calcium supplements Mammogram done on 04/05/2019 showed her BI-RADS 2 DEXA scan done on 10/25/2019 showed osteopenia, FRAX calculated at 10 years probability for major osteoporotic fracture is 16.6% and osteoporotic hip fracture is 3.8% and patient is on aromatase inhibitor which promote bone demineralization, because of that she was started on preventive dose of Fosamax, 35 mg by mouth weekly on 12/29/2019 Plan: Discussed with patient regarding her disease status, as per discussion with pathology yesterday on October 12, 2020 , was told that her mitotic index and molecular profiling is still pending, case was also discussed with her PMD Dr. Galan and was informed that histology and primary confirmation is needed to plan the treatment e.g. if its non-small cell lung cancer then molecular profiling can guide us regarding treatment options eg targeted therapy versus immunotherapy versus chemotherapy, if it is neuroendocrine tumor, mitotic index can help to decide about treatment planning,and if there is other primary then treatment would be planned accordingly, we are still waiting for confirmation, After discussion with the pathologist yesterday, patient was called in for further discussion, now patient and her daughter Consuelo, is considering second opinion or evaluation for clinical trial if available at [facility] in [place], will refer her to cancer clinic at [place] for evaluation regarding second opinion as well as for clinical trial if available. In the meantime we will rerequest cancer type ID while waiting for mitotic index and molecular profiling. Patient return to clinic 1 week after evaluation at [place]. Signed By: Edgar East M.D. <<Signature on File>>
[2020-11-22 09:41] LABS: PD-L1 (Clone 22C3) by IHC BBPL See Report
== END 2020-10-13 07:19 | disposition home or self-care (01) ==
LOC: ONCMED 07:21
PROVIDERS: PCP Internal Medicine; Visit Provider Internal Medicine Hematology & Oncology
DX: C50.212 Malignant neoplasm of upper-inner quadrant of left female breast (principal); Z17.0 Estrogen receptor positive status [ER+]; C80.1 Malignant (primary) neoplasm, unspecified; C78.7 Secondary malignant neoplasm of liver and intrahepatic bile duct; C77.1 Secondary and unspecified malignant neoplasm of intrathoracic lymph nodes; F17.210 Nicotine dependence, cigarettes, uncomplicated; Z79.899 Other long term (current) drug therapy
CPT/HCPCS: 36415; 80053; 85025; 88342; 99214

== ENCOUNTER → 2020-11-02 08:22 | Outpatient (BNVA) | payer MEDICARE, MEDICAID, SELFPAY | PROVIDERS: PCP Internal Medicine; Visit Provider Surgery | DX: Z11.59 Encounter for screening for other viral diseases (principal); C34.90 Malignant neoplasm of unspecified part of unspecified bronchus or lung | CPT/HCPCS: 87635 ==

== ENCOUNTER 2020-11-07 06:07 | Day surgery (SDC) | payer MEDICARE, MEDICAID, SELFPAY ==
[2020-11-03 15:09] VITALS: BMI 25.4
--- NOTE | 2020-11-07 | SCC_ITS ---
Procedure Done: Transinternal jugular vein PowerPort placement 19.4 seconds of fluoroscopic guidance, for a cumulative dose of 2.04 mGy, was provided to Dr. Ramirez by the radiology department. C-arm images of the chest were saved for the patient's permanent record. [facility]
--- NOTE | 2020-11-07 06:10 | SC_ITS ---
WS: [id number] C-arm FL for CVA [id number] REASON FOR EXAM: Powerport Placement FINDINGS: Chemotherapy infusion port over the right lateral chest. Catheter access is from the right internal j ugular vein. The tip is at the cavoatrial junction. SC/C-arm FL for CVA [id number] IMPRESSION: Chemotherapy port placement as above.
[2020-11-07 06:21] VITALS: BP 140/95; PULSE 80; RESP 20; TEMP 37.2; O2SAT 95
--- NOTE | 2020-11-07 06:23 | W.PM.OPSUD ---
Surgery/Procedure H&P Update DATE OF PROCEDURE: November 07, 2020 DATE H&P PERFORMED: 10/26/20 H&P UPDATE INFORMATION: I have reviewed H&P completed within last 30 days, I have examined patient prior to procedure and No changes to prior documentation PREOP DIAGNOSIS: Lung cancer PRIMARY INDICATION FOR PROCEDURE: The same PLANNED PROCEDURE: Operation Date: 11/07/20 07:00 Proposed Procedures p Portacath Placement 52894 C34.90(Not Applicable) - Molina Ramirez MD
[2020-11-07] MEDS: sodium chloride 0.9% 1,000 ML 30 ML IV (06:41)
[2020-11-07] MEDS: lidocaine 2% INJ 20 mL INJECTION (07:00)
--- NOTE | 2020-11-07 07:02 | ANES.PREANE2 ---
Pre-Anesthetic Assessment Pre-Anesthetic Assessment: Height/Weight: Height 1.6 m Weight 65.317 kg Temp Pulse Resp BP Pulse Ox 99 F 80 20 H 140/95 95 11/07/20 06:21 11/07/20 06:21 11/07/20 06:21 11/07/20 06:21 11/07/20 06:21 Preop Diagnosis: Lung cancer Proposed Procedure: Operation Date: 11/07/20 07:00 Proposed Procedures p Portacath Placement 13800 C34.90(Not Applicable) - Molina Ramirez MD Was Beta Kalen taken within 24 hours: N/A Last intake: Intake Last Liquid Date 11/06/20 Last Liquid Time 22:00 Last Solid Date 11/06/20 Last Solid Time 17:30 Social: Social History: Tobacco and No alcohol Exam: Pre-Anes Outpt Exam: alert, oriented x 3 and regular rate & rhythm Additional Exam Findings (including area of procedure): Diffuse late exp ronchi with generally diminished BS Airway: Submandibular: WNL Cervical ROM: WNL MP: 1 Dentition: Partials Pulmonary: Pulmonary: COPD, Cough, CAHMORRO and SOB CV/HEM: CV/HEM: None reported : : None reported Hepatic: Hepatic: None reported GI: GI: GERD Metabolic: Metabolic: Thyroid Musc/skel: Musc/skel: None reported Neuropsych: Neuropsych: None reported Anesthetic Plan: ASA status: 3 Anesthesia: MAC Meds/Allergies Current Medications: Current Medications Generic Name Dose Route Start Last Admin Trade Name Freq PRN Reason Stop Dose Admin Sodium Chloride 1,000 mls @ 30 ml s/hr 11/07/20 06:15 11/07/20 06:41 Sodium Chloride 0.9% IV 11/08/20 06:14 30 mls/hr .Q24H REMY Administration PFSH Anesthesia PFSH: Medical History Hx of breast cancer Family History Brother Cancer lung Father Cancer throat Hypertension Mother Cancer lung Hypertension Other CAD (coronary artery disease) Denies family history of Diabetes Anesthesia complication Bleeding disorder Social History Smoking and tobacco status: current every day smoker cigarettes Packs smoked per day: 2 Years cigarettes smoked: 52 Alcohol intake: never Lives independently: Yes Household members: none Marital status: Current occupational status: disabled History of recent travel: No Current gender identity: Female Data Anesthesia Cardiac Studies: No Data to Display
[2020-11-07] MEDS: heparin, porcine 1,000 unit/mL INJ 10 mL 10000 UNIT IRRIGATION (07:32)
--- NOTE | 2020-11-07 07:51 | PM.OP ---
Operative Report Date of procedure: November 07, 2020 Pre-op Diagnosis: Lung cancer Post-op diagnosis: same Post-op Findings: Difficult access right subclavian vein converted to ultrasound-guided right IJ vein No intraluminal thrombosis of right IJ vein Procedure Done: Transinternal jugular vein PowerPort placement Interpretation of ultrasound and fluoroscopy was done by me through the whole entire procedure Implants: PowerPaulina Surgeon: Molina Ramirez Snowblower Mechanic: creative technologist Jose A Circulating nurse Laurie Anesthesia: MAC (Meera Cavazos) Estimated blood loss (mL): 5 Condition: stable Disposition: same day Brief History: This is a pleasant 65 years old female patient with history of lung cancer requiring PowerPort placement. Plan of care; After thorough history physical examination and reviewing the chart, I counseled the patient for Port-A-Cath placement, indications, risks including pneumothorax and injury of major vascular structures, benefits,indications and alternatives were all discussed with the patient, patient understands and is interested to proceed. Rationale was carefully and clearly discussed with the patient.Appropriate informed consent have been reviewed and signed. Procedure: Patient was identified in the holding area and taken to the operative room and placed in supine position IV propofol was given by the anesthesia provider ,both arms were tucked,Time-out was done verifying the patient's name/date of /planned procedure and destination after the procedure, all were in agreement. SCDs confirmed to be functioning, preoperative antibiotics administered per protocol, and beta yumiko protocol was confirmed, appropriate positioning of the patient was done by me. Medications were reviewed to assess for anticoagulant usage. Risks and benefits and prevention of central line associated blood stream infection (CLABSI) were discussed with the patient/CPOA, and a consent was obtained. Monitors were in place and monitored throughout the procedure. All necessary supplies were available prior to start. Hand hygiene was completed prior to starting. Maximum barrier technique was utilized including a sterile gown, sterile gloves with a hat and mask. Site was was prepped with [chlorhexidine] and a full body drape was placed. 5 mL of 2% lidocaine was injected into the skin with a 25 gauge needle. Prep& drape was done under the usual sterile technique, lidocaine 2% was injected at the site of the stick, started by right Subclavian vein and venous blood was retrieved yet the wire was not able to pass after couple of attempts I decided to deviate my attention to access the right Internal Juglar vein stick that retrieved venous blood was obtained from the first stick under ultrasound guidance and there was no evidence of intraluminal thrombosis, interpretation was done by me through the whole entire procedure, a guidewire was then threaded and under the guidance of fluoroscopy position was confirmed to be in the IVC and my interpretation, there was no PVC changes, at that point the guidewire was secured to the drapes with a hemostat and the needle was taken out. Attention was then deviated towards creation of a pocket for the port were lidocaine 2% was injected using an 15 blade knife skin incision was created at the right upper Chest ,dissection using the Bovie to create a pocket for the Port-A-Cath to be accommodated, hemostasis was secured, after the port being appropriately flushed it was inserted into the pocket and a tunneler was used to accommodate the catheter of the port cath to be delivered through the incision first created at the site of the stick,then I was able to retrieve the catheter at the index site of the stick. At that point under fluoroscopy an estimated length was measured for the catheter and was cut at the designed level, followed by that a dilator with the sheath introduced onto the guidewire the dilator and the wire were retrieved and the catheter of the port was introduced via the sheath where it was peeled off and the catheter maintained to be in the SVC that was confirmed with fluoroscopy, and the fluoroscopy interpretation was done by me throughout the entire procedure. Multiple flushes of the port was done by diluted heparin and I was able to retrieve without difficulty venous blood as well as appropriate flushing was achieved. The port was kept in its pocket,3-0 Vicryl deep subdermal interrupted sutures, skin was then closed by 4-0 Monocryl as subcuticular closure. The stick site was closed by 3-0 Vicryl and surgical glue was used followed by dressing. Patient tolerated the procedure well was taken to the recovery area Count was correct at the end of the procedure I was present for the whole entire procedure
--- NOTE | 2020-11-07 07:54 | XR_ITS ---
WS: [id number] XR chest 1V portable [id number] REASON FOR EXAM: Status post PowerPort placement right internal jugular vein FINDINGS: Port placement anterior lateral chest wall with catheter exits through the right internal jugular vei n and the tip of the catheter in the superior vena cava just above the right atrium. Calcified granulomatous disease in both hemithoraces. Coarse reticular interstitial changes in both l ungs predominating in the lung bases. CT scan of the chest 10/13/2020 demonstrates a 15 mm lung nodule anteriorly in the right chest at the level of the origin of great vessels from the aortic arch. The presumed plain film representation of this lesion is rather indistinct and difficult to measure but would appear to be unchanged. Right hilar mass identified 07/09/2017 no longer identifiable. XR/XR chest 1V portable [id number] IMPRESSION: Properly positioned right IJ chemotherapy infusion port. Right hilar mass resolved. Right lung nodule, metastasis, unchanged compared to CT scan in June. Chronic interstitial lung disease.
[2020-11-07 08:09] VITALS: BP 142/83; PULSE 73; RESP 18; TEMP 36.3; O2SAT 98
[2020-11-07 08:35] VITALS: BP 141/85; PULSE 72; RESP 18; TEMP 36.4; O2SAT 94
--- NOTE | 2020-11-07 10:02 | ANE.PACU2 ---
Inpatient post-anesthesia follow up: Airway intact: Yes Vital signs: Temperature 97.6 F Pulse Rate 72 Respiratory Rate 18 Blood Pressure 141/85 Pulse Oximetry 94 Oxygen Delivery Me thod Room Air Oxygen Flow Rate Fraction of Inspir ed Oxygen Hydration adequate: Yes Nausea and vomiting: No Pain level: 2 Mental status: Baseline
== END 2020-11-07 08:47 | disposition home or self-care (01) ==
PROVIDERS: PCP Internal Medicine; Visit Provider Surgery
PROC: (CPT 36561; principal; 2020-11-07 07:00)
DX: C34.90 Malignant neoplasm of unspecified part of unspecified bronchus or lung (principal); J44.9 Chronic obstructive pulmonary disease, unspecified; K21.9 Gastro-esophageal reflux disease without esophagitis; Z85.3 Personal history of malignant neoplasm of breast; F17.210 Nicotine dependence, cigarettes, uncomplicated
CPT/HCPCS: 36561; 12345; 71045; 77001; C1788; J0690; J1644; J3010; J7030

== ENCOUNTER 2020-11-14 08:02 | Outpatient (CLI) | payer MEDICARE, MEDICAID, SELFPAY ==
--- NOTE | 2020-11-14 08:05 | CT_ITS ---
WS: [id number] CT CHEST, ABDOMEN, AND PELVIS TECHNIQUE: Contrast-enhanced CT of the chest, abdomen, and pelvis with coronal and sagittal reformatt ed images. CLINICAL INFORMATION: LUNG CANCER, BREAST CANCER COMPARISON: Multiple prior CTs including July 28, 2020, July 04, 2020, January 31, 2020, 08/03/01 9, 2 25,019. DLP: 2087.[address] scans at [facility] use at least one of these dose optimization techniques: automat ed exposure control; mA and/or kV adjustment per patient size (includes targeted exams where dose is matched to clinical indication); or iterative reconstruction. CT CHEST: Evidence of progressive disease compared to the prior examination. Spiculated right upper lobe nodule slightly larger today measuring 1.1 x 1.7 cm compared to 1.1 x 1.5 cm previous. Progressed anterior mediastinal lymph node/mass measuring 2.2 x 2.1 CM. Progressed right peribronchial lymph nodes larges t measuring 2.7 CM. Findings consistent with interval progression of disease.Progressed subpleural no dule right upper lobe laterally measuring 8 mm. Normal caliber thoracic aorta. Normal caliber proximal main pulmonary arteries. No axillary lymphaden opathy. Chronic emphysematous changes. No acute pulmonary infiltrates. Tree-in-bud nodular opacities within the right upper lobe anteriorly appear unchanged. CT ABDOMEN AND PELVIS: Significantly progressed disease in the abdomen and pelvis. Innumerable progressed metastatic liver l esions in both hepatic lobes the largest in the right hepatic lobe today measuring 7.4 x 7.4 x 6.2 cm markedly progressed compared to previous. Additional new innumerable progressed hepatic metastatic lesions. Notable lesion in the dome the liver is new from previous today measuring 2.6 x 2.7 CM. Port al vein and splenic vein are patent. Normal spleen. Normal GE junction. Normal gallbladder. Adrenal g lands are normal. Normal renal parenchymal enhancement. No hydronephrosis. Small bilateral renal cyst s. Aortic calcification. No periaortic lymphadenopathy. Prior ventral hernia measures. Mild sigmoid constipation. No evidence of high-grade small or large bowel obstruction. Small fat-containing a buckle hernia. Hypertrophic ch anges thoracic spine. Disc space narrowing worse L4-5. CT/CT chest abd pel w con* IMPRESSION: 1. Significantly progressed disease in the chest abdomen and pelvis compared t o the prior examinations. 2. Numerous markedly progressed liver lesions with innumerable new metastatic lesions in both hepatic lobes today. The largest in the right hepatic lobe liane uring 7.4 x 7.4 x 6.2 cm described above. 3. Evidence of progressed disease in the chest with slightly progressed right upper lobe spiculated nodule and progressed mediastinal lymphadenopathy 4. Progressed subpleural nodule right upper lobe laterally measuring 8 mm. 5. No other significant changes from previous.
[2020-11-14] MEDS: iohexol 300 mg/mL 50 mL Btl PO (08:44)
[2020-11-14] MEDS: iohexol 300 mg/mL 100 mL Btl IV (09:41)
== END 2020-11-14 08:03 | disposition home or self-care (01) ==
LOC: RADWPI 08:08
PROVIDERS: PCP Internal Medicine; Visit Provider Internal Medicine Medical Oncology
DX: C50.212 Malignant neoplasm of upper-inner quadrant of left female breast (principal); C34.90 Malignant neoplasm of unspecified part of unspecified bronchus or lung; R91.1 Solitary pulmonary nodule; R59.0 Localized enlarged lymph nodes; K76.9 Liver disease, unspecified
CPT/HCPCS: 71260; 74177; Q9967

== ENCOUNTER 2020-11-21 07:57 | Outpatient (CLI) | payer MEDICARE, MEDICAID, SELFPAY ==
--- NOTE | 2020-11-21 08:05 | MR_ITS ---
WS: [id number] MRI HEAD WITH CONTRAST TECHNIQUE: Sagittal T1, T2 axial, T2 axial FLAIR, axial susceptibility weighted imaging, axial diffus ion weighted images, and coronal T2 images were obtained. Pre and post-T1 axial and post T1 coronal i mages. ADC and FSPGR images. CLINICAL INFORMATION: RE-STAGING EVAL/EVAL OF NEW SYMPTOMS COMPARISON: MRI 01/28/2019 and 09/24/2012 FINDINGS: No evidence of restricted diffusion to suggest acute ischemia. Ventricular system and basilar cisterns are patent. Moderate small vessel changes. Moderate parenchym al volume loss. Small vessel changes in the adilson. Small vessel changes appear stable compared to 2019 . Normal posterior fossa. Normal vascular flow voids at the skull base. No extra-axial fluid collecti ons. Paranasal sinuses and mastoid air cells are well aerated. No hemosiderin on susceptibly weighted images. No abnormal gadolinium enhancement. No evidence of enhancing intracranial metastatic disease. Dural v enous sinuses appear normal. Normal optic chiasm and pituitary infundibulum. Normal cavernous sinuses and Meckel's cave. MR/MR head wo/w con [id number] IMPRESSION: 1. No evidence of restricted diffusion to suggest acute ischemia. 2. Moderate small vessel changes with moderate parenchymal volume loss. 3. No abnormal intracranial enhancement. No evidence of enhancing intracranial metastatic disease. 4. No hemosiderin on susceptibly weighted images. 5. No other significant findings.
== END 2020-11-21 07:58 | disposition home or self-care (01) ==
LOC: RADWPI 08:02 → ONCMED 09:24
PROVIDERS: PCP Internal Medicine; Visit Provider Internal Medicine Hematology & Oncology
DX: C50.212 Malignant neoplasm of upper-inner quadrant of left female breast (principal); Z17.0 Estrogen receptor positive status [ER+]; C34.11 Malignant neoplasm of upper lobe, right bronchus or lung; J43.9 Emphysema, unspecified; R16.0 Hepatomegaly, not elsewhere classified; R59.0 Localized enlarged lymph nodes; R91.1 Solitary pulmonary nodule
CPT/HCPCS: 70553; A9579

== ENCOUNTER 2020-11-27 08:05 | Outpatient (CLI) | payer MEDICARE, MEDICAID, SELFPAY ==
[2020-11-27 08:54] LABS: Basophils % 0.3 %; Eosinophils # 0.3 10^3/uL (0.0-0.8); Eosinophils % 3.8 %; Hematocrit 41.1 % (37.0-47.0); Hemoglobin 13.1 g/dL (11.5-15.3); Lymphocytes # 1.2 10^3/uL (0.8-4.8); Lymphocytes % 16.9 %; Mean Corpuscular HGB Conc 31.9 g/dL (30.0-36.0); Mean Corpuscular Hemoglobin 29.3 pg (28.0-34.0); Mean Corpuscular Volume 91.9 fL (81-99); Mean Platelet Volume 10.7 fL (7.4-10.4); Monocytes # 1.2 10^3/uL (0.2-0.9); Neutrophils # 4.56 10^3/uL (1.8-7.7); Neutrophils % 62.6 %; Nucleated Red Blood Cells % 0 %; Platelet Count 214 10^3/cmm (130-400); Red Blood Count 4.47 10^6/uL (4.1-5.3); Red Cell Distribution Width 14.4 % (12.1-15.1); White Blood Count 7.3 10^3/uL (4.0-10.0)
[2020-11-27 09:12] LABS: Alanine Aminotransferase 76 U/L (0-33); Albumin Level 4.2 g/dL (3.5-5.2); Alkaline Phosphatase 232 IU/L (35-105); Anion Gap 15.3 (5-19); Aspartate Amino Transferase 76 U/L (0-32); Blood Urea Nitrogen 13 mg/dL (8-23); Calcium 9.5 mg/dL (8.5-10.5); Carbon Dioxide 27 mmol/L (22-29); Chloride 102 mmol/L (98-107); Globulin 2.8 g/dL (1.3-4.6); Glomerular Filtration Rate 71.8 mL/min (90-130); Glucose 71 mg/dL (65-115); Osmolality Calculated 289 mOsm/kg (285-295); Potassium 4.3 mmol/L (3.5-5.1); Sodium 140 mmol/L (136-145); Total Bilirubin 0.3 mg/dL (0.15-1.2)
--- NOTE | 2020-11-28 14:12 | ONC FU_ITS ---
Dr. East follow up note Patient: Liz Tyler Unit #: [id number]: [id number] Dicatated By: Edgar East M.D.Date of Visit:Nov 27, 2020 Onc Med Follow-up/Prog Note History of Present Illness: Mrs. 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 Mrs Azul states during her routine annual follow-up mammogram done this year, a spiculated mass in her left breast was discovered. A left breast ultrasound done on 04/22/2018 at which time she also underwent sonogram guided left breast biopsy which confirmed infiltrating adenocarcinoma. Mrs Azul underwent left breast excisional biopsy with sentinel lymph node biopsy on 06/05/2018 which showed infiltrating ductal carcinoma but positive inferior and posterior margin and 1 out of 4, positive lymph node. ER/AL positive HER-2/leila negative. She underwent reexcision of inferior and posterior margins on 06/24/2018. The final pathology report showed inferior margin involved by microscopic nest of residual tumor whereas posterior margin was free of residual tumor.Oncotype DX showed low risk s/p postlumpectomy radiation in 09/10 and now on adjuvant hormonal therapy with Arimidex vitamin D/calcium, since 07/21/18 Follow-up mammogram done on 04/05/2019 showed BI-RADS 2, benign follow-up mammogram done on April 28, 2020 showed BI-RADS 2, benign Follow-up CT scan of chest ordered by PMD regarding right middle lobe lung nodule on January 31, 2020 showed noncalcified pulmonary nodule in the right upper lobe is increased in size, 8.3 mm compared to 4 mm previously on August 03, 2019. Right middle lobe nodular opacities stable since May 01, 2018. Otherwise no mediastinal or hilar lymphadenopathy Tolerating Arimidex/vitamin D/calcium and weekly Fosamax well Patient underwent follow-up CT scan of chest ordered by her PMD on July 04, 2020 which showed significant enlargement of anterior right upper lobe lobe pulmonary nodules since January 31, 2020 nodule now measures 1.1 x 1.5 cm compared to 8 x 9 mm previously. And also showed new enlarged right paratracheal lymph node measuring about 1.8 cm. And on the scan entire liver is not imaged and appears slightly enlarged. There are few scattered hypodensities throughout the liver which are probably small cysts but too small to characterize no renal mass seen., Patient underwent CT PET scan ordered by her PMD on July 26, 2020 in [place] which showed nodule identified in anterior portion of right upper lobe measuring 1.1 x 1.4 cm shows SUV of 8.5. Inferior to this are other pulmonary micronodules measuring less than 1 cm. No other abnormality seen in the lung but abnormally enlarged right paratracheal lymph nodes are identified measuring 2.2 x 2.3 cm shows abnormal activity with SUV of 9.9. No other enlarged lymph nodes or any other abnormality seen. Abnormal uptake identified in a lesion superiorly and left lobe, larger lesion inferiorly in the right lobe also shows abnormal activity with SUV of 9.6. Patient underwent liver biopsy recently which shows adenocarcinoma, immunohistochemistry remained inconclusive but possibility of metastatic breast cancer was not ruled out although her primary breast cancer was ER AL positive and metastatic lesion is ER AL negative. Case was discussed with pathologist regarding role of cancer type ID but as her PET scan showed abnormal uptake in right upper lobe as well as right hilar lymph node so pathologist suggested biopsy from right hilar lymph node and if it matches with liver lesion then it will be diagnosed as metastatic lung cancer. 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 The immunohistochemistry positive for CD56, indicating neuroendocrine differentiation. But Chromogranin A, negative, synaptophysin, weak positive with again indicating neuroendocrine differentiation. Pathology was requested to do mitotic index to confirm aggressive neuroendocrine versus low-grade, on October 03, 2020. Case was discussed with pathology again on October 12, 2020, mitotic index was pending Thus patient was referred to [facility] and she was evaluated by Dr. Cruz on October 27, 2020 and as per her consult note biopsy-proven right paratracheal lymph node and biopsy-proven metastasis to the liver, poorly differentiated carcinoma with neuroendocrine features and immunohistochemical features consistent with squamous histology so her recommendations were to treat her as non-small cell lung cancer with carboplatin/Abraxane and pembrolizumab and if PD-L1 report showed more than 50%, then pembrolizumab alone. Guardant 360 testing will ordered, also recommended MRI scan of the brain and baseline CT scan of chest and abdomen/pelvis. And also plan for pathology consultation at [facility] on the right paratracheal lymph node/liver biopsies done in [place]. MRI scan of the brain done on November 21, 2020 showed no evidence of enhancing intracranial metastatic disease and repeat CT scan of chest abdomen pelvis when compared with CT scan done on July 28, 2020, July 04, 2020 and January 31, 2020 shows spiculated right upper lobe nodule is slightly larger e.g. 1.1 x 1.7 cm compared to 1.1 x 1.5 cm previously. Progressed anterior mediastinal lymph node measuring 2.2 x 2.1 cm. Progressive right peribronchial lymph nodes largest measuring 2.7 cm. Progressive subpleural nodule right upper lobe laterally measuring 8 mm. Chronic emphysematous changes. CT scan of abdomen showed significant disease progression in the liver numerous marked progressed liver lesions with innumerable new metastatic lesion both hepatic lobes largest in the right hepatic lobe measuring 7.4 x 7.4 x 6.2 cm and no other significant changes seen. Case was discussed with Dr. Cruz today and she said biopsies reviewed by their pathologist at [facility] confirmed findings consistent with small cell lung cancer in the right paratracheal lymph node but in liver biopsy he was a neuroendocrine tumor large cell type, atypical carcinoid type Came for follow-up, specific complaint except right upper quadrant/right lower chest discomfort/pain but under control with current pain medication. But denies any hemoptysis or hematemesis, denies any headaches blurred vision double vision, denies any shortness of breath, denies any jaundice, denies any diarrhea or constipation. Patient had MRI scan as well as CT scan of abdomen pelvis done on November 21, 2020., And here to discuss further treatment plan as she does not want to go back to [place] for any treatment.Patient still smoke about a pack a day Medications: ClearLax Powder Oral daily PRN, Endocet 1 Tablet (of 5-325 mg) Oral PRN, Levothyroxine Sodium 1 (50 mcg) Tablet Oral daily, Meloxicam 1 (15 mg) Tablet Oral daily, Pravastatin Sodium 1 (40 mg) Tablet Oral at bedtime, Prevacid 1 Capsule Capsule Delayed Release Oral daily, TraZODone HCl 1 (100 mg) Tablet Oral at bedtime, Wellbutrin SR 1 Tablet (of 150 mg) Tablet SR 12 HR Oral daily Allergies: Codeine Sulfate Review of Systems: Constitutional - Appetite is good and weight is stable. No fever, chills, hot flashes, or night sweats. Energy level is fair, ENMT - No sinus congestion/drainage. No mouth sores. No sore throat or difficulty swallowing, Hematologic/Lymphatic - No abnormal bruising or bleeding, Respiratory - Positive for shortness of breath. Frequent white phlegm productive cough. No pleuritic pain or hemoptysis, Cardiovascular - No angina pain. No palpitations, Gastrointestinal - No nausea or vomiting. No heartburn or acid reflux. No diarrhea or constipation. No blood in the stool or black stools, Genitourinary (F) - No dysuria or hematuria. No urinary frequency. No urgency or incontinence, Musculoskeletal - No joint or bone pain, Neurologic - No headache or dizziness. No numbness/paresthesias or other focal neurologic symptoms, Psychiatric - No anxiety or depression. No insomnia. Vital Signs: Vitals are not available for this patient. Performance Status: 1 - No physically strenuous activity, but ambulatory and able to carry out light or sedentary work (e.g. office work, light house work). (ECOG) Physical Examination: Respiratory - Poor air entry, mild bilateral wheezing, Cardiovascular - Regular rate and rhythm of heart, Gastrointestinal - Soft, bowel sounds present, Extremities - No visible edema or rash. Lab/Imaging: Test performed on Oct 13, 2020 11:22 Sodium 138 mmol/L Potassium 3.9 mmol/L Chloride 102 mmol/L CO2 26 mmol/L Anion Gap 13.9 BUN 17 mg/dL Creatinine 0.9 mg/dL Cr Clearance (Est) 63.7600 mL/min eGFR 62.6 mL/min Glucose 91 mg/dL Osmolality - Calculated 287 mOsm/kg Calcium 9.4 mg/dL Protein, Total 7.0 g/dL Albumin 4.3 g/dL Globulin 2.7 g/dL Bilirubin, Total 0.3 mg/dL ALT (SGPT) 11 U/L AST (SGOT) 20 U/L Alkaline Phosphatase 146 IU/L WBC 6.3 10 3/uL RBC 4.49 10 6/uL HGB 13.4 g/dL HCT 41.8 % MCV 93.1 fL MCH 29.8 pg MCHC 32.1 g/dL RDW 14.2 % Platelet Count 220 10 3/cmm MPV 10.7 fL Neutrophils 3.97 10 3/uL Lymphocytes 1.1 10 3/uL Monocytes 1.1 10 3/uL Eosinophils 0.2 10 3/uL Basophils 0.0 10 3/uL Neutrophil % 62.6 % Lymphocyte % 17.4 % Monocyte % 16.6 % Eosinophil % 2.8 % Basophils % 0.3 % NRBC % 0 % Impression: 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 Follow-up CT scan of chest abdomen pelvis done on November 14, 2020 showed evidence of progressive disease in the chest with slightly progressed with right upper lobe spiculated nodule which is 1.1 x 1.7 cm compared to 1.1 x 1.5 cm and progressed anterior mediastinal lymph node measuring 2.2 x 2.1 cm and progress right peribronchial lymph node measuring 2.7 cm and significant disease progression in the liver largest mass in the right lobe 7.4 x 7.4 x 6.2 cm and numerous markedly progressed liver lesions with innumerable new metastatic lesion both hepatic lobes Whereas CT PET scan done on July 26, 2020 showed nodule identified in anterior portion of right upper lobe measuring 1.1 x 1.4 cm with SUV of 8.5 and abnormally enlarged right paratracheal lymph nodes size 2.2 x 2.3 cm with SUV of 9.9 no other abnormality seen in the lung but in the liver abnormal uptake identified in the lesion superiorly and left lobe. Larger lesion inferiorly in the right lobe also shows abnormal activity with SUV of 9.6. No other abnormality seen. 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, immunohistochemistry positive for CD56, synaptophysin, CK7, CK cocktail, weakly positive for p63, and negative for CK20, as per pathology histology is similar to prior liver biopsy sample and suggestive of lung primary with mets to the lymph node as well as liver , Mitotic indexAnd molecular profiling is pending Due to difficulty in confirming histology/primary At local hospital ,which was needed for treatment planning, she was referred to [facility] in [place] for second opinion Where she was seen on October 27, 2020 and the initial impression was non-small cell lung cancer due to squamous differentiation but pathology consultation done in October 2020 and cancer type ID reported on November 07, 2020, it was concluded that patient has neuroendocrine small cell/large cell lung cancer 2. Infiltrating ductal carcinoma involving left breast per biopsy and sentinel lymph node done on 06/05/2018 followed by reexcision on 06/24/2018 for positive inferior and posterior margin and final pathology report showed persistent positive inferior margin but posterior margin was cleared. Next Size of tumor 3.2 x 2.6 cm, T2 1 out of 4, positive sentinel lymph node pN1 (SN) ER 98%, AL 95%, HER-2/leila negative stage IIB Oncotype DX score 10 e.g. low risk and 5 years risk of recurrence after 5 years of hormone therapy is about 9% Status post postlumpectomy radiation therapy in August 2018 Starting Arimidex 1 mg on 07/21/2018 for 5 years Along with vitamin D and calcium supplements Mammogram done on 04/05/2019 showed her BI-RADS 2 DEXA scan done on 10/25/2019 showed osteopenia, FRAX calculated at 10 years probability for major osteoporotic fracture is 16.6% and osteoporotic hip fracture is 3.8% and patient is on aromatase inhibitor which promote bone demineralization, because of that she was started on preventive dose of Fosamax, 35 mg by mouth weekly on 12/29/2019 Plan: Discussed with patient regarding her labs white blood count 7.3 hemoglobin 13.1 hematocrit 41.1 platelets 214,000 CMP within normal limits except ALT 76 AST 76 compared to 10/13 on October 13, 2020 Also discussed about baseline CT scan of chest abdomen pelvis and MRI scan of brain recommended by Dr. Cruz, medical oncologist at [facility], patient is doing reasonably well with no new complaints except progressive right upper quadrant/right lower chest discomfort/pain 3-4 on a scale of 1-10 but under control with current pain medication, as per patient and her daughter Consuelo, they have been told At [facility] that her disease is not curable and it is non-small cell type and she will need chemotherapy/immunotherapy and they would prefer to get treatment done locally. And her daughter is also considering taking her to [facility] near [place] in the near future. Case was discussed with Dr. Cruz, today and she said her initial impression was non-small cell lung cancer due to squamous differentiation seen in the biopsy report but her pathologist reviewed biopsies from [place] and concluded that her right paratracheal lymph node biopsy is consistent with small cell lung cancer whereas liver biopsy is consistent with neuroendocrine tumor , large cell type,? atypical carcinoid and then she was informed that we did order cancer type ID which was reported on November 07, 2020 and it confirmed neuroendocrine, small cell/large cell lung cancer with 96% probability and as per discussion with Dr. Cruz, based on recent pathology consultation at [facility] and cancer type ID which was reported in mid October 2020 it was concluded, that she would be treated as metastatic small cell lung cancer rather than non-small cell (sq cell differentiation) lung cancer which was earlier planned/recommended on October 27, 2020 when she was evaluated at [facility], in [place] her follow-up CT chest abdomen pelvis scan done on November 14, 2020 did not show significant change in the chest which is unusual for small cell lung cancer whereas liver shows extensive disease with significant progression which is somewhat unusual for atypical carcinoid. Discussed with patient and her daughter Consuelo final diagnosis and treatment plan cancer type ID confirmed neuroendocrine tumor consistent with small cell/large cell lung cancer and also since her visit to [facility] at [facility], on October 27, 2020, her oncologist Dr. Cruz, did review her biopsies from [place] with her pathologist and concluded her disease as metastatic small cell cancer and she recommended carboplatin/etoposide/Tecentriq. All the side effects and possible benefits associated with chemoimmunotherapy including but not limited to nausea vomiting, diarrhea, bone marrow suppression, life-threatening infection, bleeding due to thrombocytopenia, hair loss, pneumonitis, colitis, endocrinopathy especially with immunotherapy, allergic reaction And tumor lysis were mentioned, further teaching will be done by chemotherapy nurse in the meantime will obtain approval from her insurance prior to the treatment and plan to give her carboplatin AUC 5 on day 1 and etoposide 100 mg/m??? daily for 3 days and Tecentriq 1200 mg and followed by Neulasta to prevent chemotherapy-induced neutropenia/leukopenia, repeat cycle every 3 weeks, followed by CT PET scan after 3 cycles to assess disease response. We will also start allopurinol 100 mg p.o. 3 times a day to prevent tumor lysis and patient was advised to drink plenty of fluid to avoid dehydration. She was also advised to quit smoking and was offered any assistance she may need As far as right upper quadrant/right lower chest pain is concerned probably due to progressive liver mets and patient was encouraged to take pain medication to stay comfortable and was reassured that once systemic chemotherapy/immunotherapy is initiated it may improve her pain. We will start her chemoimmunotherapy with carboplatin/etoposide/Tecentriq as soon as possible And she will return to clinic 1 week after chemo immunotherapy initiated with CBC CMP Signed By: Edgar East M.D. <<Signature on File>>
== END 2020-11-27 08:06 | disposition home or self-care (01) ==
LOC: ONCMED 08:08
PROVIDERS: PCP Internal Medicine; Visit Provider Internal Medicine Hematology & Oncology
DX: C50.812 Malignant neoplasm of overlapping sites of left female breast (principal); Z17.0 Estrogen receptor positive status [ER+]; C78.01 Secondary malignant neoplasm of right lung; C78.02 Secondary malignant neoplasm of left lung; C78.7 Secondary malignant neoplasm of liver and intrahepatic bile duct; C77.8 Secondary and unspecified malignant neoplasm of lymph nodes of multiple regions; J43.9 Emphysema, unspecified; Z79.899 Other long term (current) drug therapy; Z92.21 Personal history of antineoplastic chemotherapy
CPT/HCPCS: 36591; 80053; 85025; 99215

== ENCOUNTER 2020-12-19 05:38 | Outpatient (RCR) | payer MEDICARE, MEDICAID, SELFPAY ==
[2020-12-04 15:30] LABS: Basophils % 0.2 %; Eosinophils # 0.2 10^3/uL (0.0-0.8); Eosinophils % 2.1 %; Hematocrit 42.1 % (37.0-47.0); Hemoglobin 13.3 g/dL (11.5-15.3); Lymphocytes # 1.1 10^3/uL (0.8-4.8); Lymphocytes % 13.7 %; Mean Corpuscular HGB Conc 31.6 g/dL (30.0-36.0); Mean Corpuscular Hemoglobin 29.2 pg (28.0-34.0); Mean Corpuscular Volume 92.5 fL (81-99); Mean Platelet Volume 10.5 fL (7.4-10.4); Monocytes # 1.2 10^3/uL (0.2-0.9); Monocytes % 14.3 %; Neutrophils # 5.65 10^3/uL (1.8-7.7); Neutrophils % 69.2 %; Nucleated Red Blood Cells % 0 %; Platelet Count 217 10^3/cmm (130-400); Red Blood Count 4.55 10^6/uL (4.1-5.3); Red Cell Distribution Width 14.2 % (12.1-15.1); White Blood Count 8.2 10^3/uL (4.0-10.0)
[2020-12-04 16:03] LABS: Alanine Aminotransferase 28 U/L (0-33); Albumin Level 3.8 g/dL (3.5-5.2); Alkaline Phosphatase 243 IU/L (35-105); Aspartate Amino Transferase 31 U/L (0-32); Blood Urea Nitrogen 12 mg/dL (8-23); Calcium 9.3 mg/dL (8.5-10.5); Carbon Dioxide 26 mmol/L (22-29); Chloride 100 mmol/L (98-107); Globulin 2.9 g/dL (1.3-4.6); Glomerular Filtration Rate 71.8 mL/min (90-130); Glucose 146 mg/dL (65-115); Osmolality Calculated 282 mOsm/kg (285-295); Sodium 135 mmol/L (136-145); Total Bilirubin 0.2 mg/dL (0.15-1.2); Total Protein 6.7 g/dL (6.6-8.7)
[2020-12-05] MEDS: ondansetron 2 mg/ML SDV 2 mL 8 MG IVP (10:23)
[2020-12-05] MEDS: sodium chloride 0.9% 250 ML IV (10:23)
--- NOTE | 2020-12-05 13:32 | ONC FU_ITS ---
Dr. East follow up note Patient: Liz Tyler Unit #: [id number]: [id number] Dicatated By: Edgar East M.D.Date of Visit:Dec 05, 2020 Onc Med Follow-up/Prog Note History of Present Illness: Mrs. 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 Mrs Azul states during her routine annual follow-up mammogram done this year, a spiculated mass in her left breast was discovered. A left breast ultrasound done on 04/22/2018 at which time she also underwent sonogram guided left breast biopsy which confirmed infiltrating adenocarcinoma. Mrs Azul underwent left breast excisional biopsy with sentinel lymph node biopsy on 06/05/2018 which showed infiltrating ductal carcinoma but positive inferior and posterior margin and 1 out of 4, positive lymph node. ER/UT positive HER-2/leila negative. She underwent reexcision of inferior and posterior margins on 06/24/2018. The final pathology report showed inferior margin involved by microscopic nest of residual tumor whereas posterior margin was free of residual tumor.Oncotype DX showed low risk s/p postlumpectomy radiation in 09/10 and now on adjuvant hormonal therapy with Arimidex vitamin D/calcium, since 07/21/18 Follow-up mammogram done on 04/05/2019 showed BI-RADS 2, benign follow-up mammogram done on April 28, 2020 showed BI-RADS 2, benign Follow-up CT scan of chest ordered by PMD regarding right middle lobe lung nodule on January 31, 2020 showed noncalcified pulmonary nodule in the right upper lobe is increased in size, 8.3 mm compared to 4 mm previously on August 03, 2019. Right middle lobe nodular opacities stable since May 01, 2018. Otherwise no mediastinal or hilar lymphadenopathy Tolerating Arimidex/vitamin D/calcium and weekly Fosamax well Patient underwent follow-up CT scan of chest ordered by her PMD on July 04, 2020 which showed significant enlargement of anterior right upper lobe lobe pulmonary nodules since January 31, 2020 nodule now measures 1.1 x 1.5 cm compared to 8 x 9 mm previously. And also showed new enlarged right paratracheal lymph node measuring about 1.8 cm. And on the scan entire liver is not imaged and appears slightly enlarged. There are few scattered hypodensities throughout the liver which are probably small cysts but too small to characterize no renal mass seen., Patient underwent CT PET scan ordered by her PMD on July 26, 2020 in [place] which showed nodule identified in anterior portion of right upper lobe measuring 1.1 x 1.4 cm shows SUV of 8.5. Inferior to this are other pulmonary micronodules measuring less than 1 cm. No other abnormality seen in the lung but abnormally enlarged right paratracheal lymph nodes are identified measuring 2.2 x 2.3 cm shows abnormal activity with SUV of 9.9. No other enlarged lymph nodes or any other abnormality seen. Abnormal uptake identified in a lesion superiorly and left lobe, larger lesion inferiorly in the right lobe also shows abnormal activity with SUV of 9.6. Patient underwent liver biopsy recently which shows adenocarcinoma, immunohistochemistry remained inconclusive but possibility of metastatic breast cancer was not ruled out although her primary breast cancer was ER UT positive and metastatic lesion is ER UT negative. Case was discussed with pathologist regarding role of cancer type ID but as her PET scan showed abnormal uptake in right upper lobe as well as right hilar lymph node so pathologist suggested biopsy from right hilar lymph node and if it matches with liver lesion then it will be diagnosed as metastatic lung cancer. 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 The immunohistochemistry positive for CD56, indicating neuroendocrine differentiation. But Chromogranin A, negative, synaptophysin, weak positive with again indicating neuroendocrine differentiation. Pathology was requested to do mitotic index to confirm aggressive neuroendocrine versus low-grade, on October 03, 2020. Case was discussed with pathology again on October 12, 2020, mitotic index was pending Thus patient was referred to [facility] and she was evaluated by Dr. Cruz on October 27, 2020 and as per her consult note biopsy-proven right paratracheal lymph node and biopsy-proven metastasis to the liver, poorly differentiated carcinoma with neuroendocrine features and immunohistochemical features consistent with squamous histology so her recommendations were to treat her as non-small cell lung cancer with carboplatin/Abraxane and pembrolizumab and if PD-L1 report showed more than 50%, then pembrolizumab alone. Guardant 360 testing will ordered, also recommended MRI scan of the brain and baseline CT scan of chest and abdomen/pelvis. And also plan for pathology consultation at [facility] on the right paratracheal lymph node/liver biopsies done in [place]. MRI scan of the brain done on November 21, 2020 showed no evidence of enhancing intracranial metastatic disease and repeat CT scan of chest abdomen pelvis when compared with CT scan done on July 28, 2020, July 04, 2020 and January 31, 2020 shows spiculated right upper lobe nodule is slightly larger e.g. 1.1 x 1.7 cm compared to 1.1 x 1.5 cm previously. Progressed anterior mediastinal lymph node measuring 2.2 x 2.1 cm. Progressive right peribronchial lymph nodes largest measuring 2.7 cm. Progressive subpleural nodule right upper lobe laterally measuring 8 mm. Chronic emphysematous changes. CT scan of abdomen showed significant disease progression in the liver numerous marked progressed liver lesions with innumerable new metastatic lesion both hepatic lobes largest in the right hepatic lobe measuring 7.4 x 7.4 x 6.2 cm and no other significant changes seen. Case was discussed with Dr. Cruz today and she said biopsies reviewed by their pathologist at [facility] confirmed findings consistent with small cell lung cancer in the right paratracheal lymph node but in liver biopsy he was a neuroendocrine tumor large cell type, atypical carcinoid type Came for follow-up, denies any specific complaints except right upper quadrant discomfort but under control with current pain medication, no fever chills, no nausea or vomiting, no diarrhea constipation, no hemoptysis or hematemesis Medications: ClearLax Powder Oral daily PRN, Endocet 1 Tablet (of 5-325 mg) Oral PRN, Levothyroxine Sodium 1 (50 mcg) Tablet Oral daily, Meloxicam 1 (15 mg) Tablet Oral daily, Pravastatin Sodium 1 (40 mg) Tablet Oral at bedtime, Prevacid 1 Capsule Capsule Delayed Release Oral daily, TraZODone HCl 1 (100 mg) Tablet Oral at bedtime, Wellbutrin SR 1 Tablet (of 150 mg) Tablet SR 12 HR Oral daily Allergies: Codeine Sulfate Review of Systems: Constitutional - Appetite is good and weight is stable. No fever, chills, hot flashes, or night sweats. Energy level is fair, ENMT - No sinus congestion/drainage. No mouth sores. No sore throat or difficulty swallowing, Hematologic/Lymphatic - No abnormal bruising or bleeding, Respiratory - Positive for shortness of breath. Frequent white phlegm productive cough. No pleuritic pain or hemoptysis, Cardiovascular - No angina pain. No palpitations, Gastrointestinal - No nausea or vomiting. No heartburn or acid reflux. No diarrhea or constipation. No blood in the stool or black stools, Genitourinary (F) - No dysuria or hematuria. No urinary frequency. No urgency or incontinence, Musculoskeletal - No joint or bone pain, Neurologic - No headache or dizziness. No numbness/paresthesias or other focal neurologic symptoms, Psychiatric - No anxiety or depression. No insomnia. Vital Signs: Performed on Dec 05, 2020 09:27 Height - 63.00 in Weight - 143.0 lbs (HIGH) BSA - 1.68 sq.m BMI - 25.33 Temperature - 98.1 F (LOW) Pulse - 91 /min Respiration - 16 /min BP - 114/70 mm(hg) O2 Sat - 94 % (LOW) Pain - 2 Performance Status: 1 - No physically strenuous activity, but ambulatory and able to carry out light or sedentary work (e.g. office work, light house work). (ECOG) Physical Examination: Respiratory - Poor air entry otherwise clear, Cardiovascular - Regular rate and rhythm of heart, Gastrointestinal - Soft, bowel sounds present, Extremities - No visible edema. Lab/Imaging: Test performed on Dec 04, 2020 15:20 Sodium 135 mmol/L Potassium 4.0 mmol/L Chloride 100 mmol/L CO2 26 mmol/L Anion Gap 13.0 BUN 12 mg/dL Creatinine 0.8 mg/dL Cr Clearance (Est) 71.7200 mL/min eGFR 71.8 mL/min Glucose 146 mg/dL Osmolality - Calculated 282 mOsm/kg Calcium 9.3 mg/dL Protein, Total 6.7 g/dL Albumin 3.8 g/dL Globulin 2.9 g/dL Bilirubin, Total 0.2 mg/dL ALT (SGPT) 28 U/L AST (SGOT) 31 U/L Alkaline Phosphatase 243 IU/L WBC 8.2 10 3/uL RBC 4.55 10 6/uL HGB 13.3 g/dL HCT 42.1 % MCV 92.5 fL MCH 29.2 pg MCHC 31.6 g/dL RDW 14.2 % Platelet Count 217 10 3/cmm MPV 10.5 fL Neutrophils 5.65 10 3/uL Lymphocytes 1.1 10 3/uL Monocytes 1.2 10 3/uL Eosinophils 0.2 10 3/uL Basophils 0.0 10 3/uL Neutrophil % 69.2 % Lymphocyte % 13.7 % Monocyte % 14.3 % Eosinophil % 2.1 % Basophils % 0.2 % NRBC % 0 % Impression: 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 Follow-up CT scan of chest abdomen pelvis done on November 14, 2020 showed evidence of progressive disease in the chest with slightly progressed with right upper lobe spiculated nodule which is 1.1 x 1.7 cm compared to 1.1 x 1.5 cm and progressed anterior mediastinal lymph node measuring 2.2 x 2.1 cm and progress right peribronchial lymph node measuring 2.7 cm and significant disease progression in the liver largest mass in the right lobe 7.4 x 7.4 x 6.2 cm and numerous markedly progressed liver lesions with innumerable new metastatic lesion both hepatic lobes Whereas CT PET scan done on July 26, 2020 showed nodule identified in anterior portion of right upper lobe measuring 1.1 x 1.4 cm with SUV of 8.5 and abnormally enlarged right paratracheal lymph nodes size 2.2 x 2.3 cm with SUV of 9.9 no other abnormality seen in the lung but in the liver abnormal uptake identified in the lesion superiorly and left lobe. Larger lesion inferiorly in the right lobe also shows abnormal activity with SUV of 9.6. No other abnormality seen. 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, immunohistochemistry positive for CD56, synaptophysin, CK7, CK cocktail, weakly positive for p63, and negative for CK20, as per pathology histology is similar to prior liver biopsy sample and suggestive of lung primary with mets to the lymph node as well as liver , Mitotic indexAnd molecular profiling is pending Due to difficulty in confirming histology/primary At local hospital ,which was needed for treatment planning, she was referred to [facility] for second opinion Where she was seen on October 27, 2020 and the initial impression was non-small cell lung cancer due to squamous differentiation but pathology consultation done in October 2020 and cancer type ID reported on November 07, 2020, it was concluded that patient has neuroendocrine small cell/large cell lung cancer 2. Infiltrating ductal carcinoma involving left breast per biopsy and sentinel lymph node done on 06/05/2018 followed by reexcision on 06/24/2018 for positive inferior and posterior margin and final pathology report showed persistent positive inferior margin but posterior margin was cleared. Next Size of tumor 3.2 x 2.6 cm, T2 1 out of 4, positive sentinel lymph node pN1 (SN) ER 98%, UT 95%, HER-2/leila negative stage IIB Oncotype DX score 10 e.g. low risk and 5 years risk of recurrence after 5 years of hormone therapy is about 9% Status post postlumpectomy radiation therapy in August 2018 Starting Arimidex 1 mg on 07/21/2018 for 5 years Along with vitamin D and calcium supplements Mammogram done on 04/05/2019 showed her BI-RADS 2 DEXA scan done on 10/25/2019 showed osteopenia, FRAX calculated at 10 years probability for major osteoporotic fracture is 16.6% and osteoporotic hip fracture is 3.8% and patient is on aromatase inhibitor which promote bone demineralization, because of that she was started on preventive dose of Fosamax, 35 mg by mouth weekly on 12/29/2019 Plan: Discussed with patient regarding her labs white blood count 8.2 hemoglobin 13.3 hematocrit 42.1 platelets 217,000 CMP within normal limits except glucose 146 Clinically, patient is doing well, with no new signs symptoms, now being considered starting palliative chemotherapy with carboplatin/etoposide, earlier plan was to add Tecentriq too but because of concern about chemo immunotherapy dated side effects, will hold immunotherapy with the first cycle, if she tolerated palliative chemotherapy well then will consider adding Tecentriq with next cycle. Patient agreed and now will proceed with first cycle of chemotherapy with carboplatin/etoposide with Neulasta support and then return to clinic in 1 week with CBC CMP. Patient was advised to maintain good hydration and she is already on allopurinol to prevent tumor lysis. Patient still smoke about pack a day, she was advised to quit smoking and was offered any assistance she may need Signed By: Edgar East M.D. <<Signature on File>>
[2020-12-06] MEDS: sodium chloride 0.9% 250 ML IV (11:06)
[2020-12-06] MEDS: ondansetron 2 mg/ML SDV 2 mL 8 MG IVP (11:06)
[2020-12-07] MEDS: palonosetron 0.25 mg/5 mL SDV IVP (10:47)
[2020-12-07] MEDS: sodium chloride 0.9% 250 ML IV (10:47)
[2020-12-11 15:02] LABS: Basophils % 0.4 %; Eosinophils % 0.6 %; Hematocrit 40.6 % (37.0-47.0); Hemoglobin 13.4 g/dL (11.5-15.3); Lymphocytes # 1.2 10^3/uL (0.8-4.8); Lymphocytes % 16.1 %; Mean Corpuscular Hemoglobin 29.8 pg (28.0-34.0); Mean Corpuscular Volume 90.4 fL (81-99); Mean Platelet Volume 10.1 fL (7.4-10.4); Monocytes # 0.1 10^3/uL (0.2-0.9); Neutrophils # 5.79 10^3/uL (1.8-7.7); Neutrophils % 80.9 %; Nucleated Red Blood Cells % 0 %; Platelet Count 239 10^3/cmm (130-400); Red Blood Count 4.49 10^6/uL (4.1-5.3); Red Cell Distribution Width 13.5 % (12.1-15.1); White Blood Count 7.2 10^3/uL (4.0-10.0)
[2020-12-11 15:58] LABS: Alanine Aminotransferase 25 U/L (0-33); Albumin Level 4.2 g/dL (3.5-5.2); Alkaline Phosphatase 218 IU/L (35-105); Anion Gap 16.7 (5-19); Aspartate Amino Transferase 37 U/L (0-32); Blood Urea Nitrogen 22 mg/dL (8-23); Calcium 9.5 mg/dL (8.5-10.5); Carbon Dioxide 25 mmol/L (22-29); Chloride 100 mmol/L (98-107); Globulin 2.9 g/dL (1.3-4.6); Glomerular Filtration Rate 71.8 mL/min (90-130); Glucose 122 mg/dL (65-115); Osmolality Calculated 289 mOsm/kg (285-295); Potassium 4.7 mmol/L (3.5-5.1); Sodium 137 mmol/L (136-145); Total Bilirubin 0.3 mg/dL (0.15-1.2); Total Protein 7.1 g/dL (6.6-8.7)
--- NOTE | 2020-12-12 09:36 | ONC FU_ITS ---
Dr. East follow up note Patient: Liz Tyler Unit #: [id number]: [id number] Dicatated By: Edgar East M.D.Date of Visit:Dec 12, 2020 Onc Med Follow-up/Prog Note History of Present Illness: Mrs. 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 Mrs Azul states during her routine annual follow-up mammogram done this year, a spiculated mass in her left breast was discovered. A left breast ultrasound done on 04/22/2018 at which time she also underwent sonogram guided left breast biopsy which confirmed infiltrating adenocarcinoma. Mrs Azul underwent left breast excisional biopsy with sentinel lymph node biopsy on 06/05/2018 which showed infiltrating ductal carcinoma but positive inferior and posterior margin and 1 out of 4, positive lymph node. ER/[place] positive HER-2/leila negative. She underwent reexcision of inferior and posterior margins on 06/24/2018. The final pathology report showed inferior margin involved by microscopic nest of residual tumor whereas posterior margin was free of residual tumor.Oncotype DX showed low risk s/p postlumpectomy radiation in 09/10 and now on adjuvant hormonal therapy with Arimidex vitamin D/calcium, since 07/21/18 Follow-up mammogram done on 04/05/2019 showed BI-RADS 2, benign follow-up mammogram done on April 28, 2020 showed BI-RADS 2, benign Follow-up CT scan of chest ordered by PMD regarding right middle lobe lung nodule on January 31, 2020 showed noncalcified pulmonary nodule in the right upper lobe is increased in size, 8.3 mm compared to 4 mm previously on August 03, 2019. Right middle lobe nodular opacities stable since May 01, 2018. Otherwise no mediastinal or hilar lymphadenopathy Tolerating Arimidex/vitamin D/calcium and weekly Fosamax well Patient underwent follow-up CT scan of chest ordered by her PMD on July 04, 2020 which showed significant enlargement of anterior right upper lobe lobe pulmonary nodules since January 31, 2020 nodule now measures 1.1 x 1.5 cm compared to 8 x 9 mm previously. And also showed new enlarged right paratracheal lymph node measuring about 1.8 cm. And on the scan entire liver is not imaged and appears slightly enlarged. There are few scattered hypodensities throughout the liver which are probably small cysts but too small to characterize no renal mass seen., Patient underwent CT PET scan ordered by her PMD on July 26, 2020 in [place] which showed nodule identified in anterior portion of right upper lobe measuring 1.1 x 1.4 cm shows SUV of 8.5. Inferior to this are other pulmonary micronodules measuring less than 1 cm. No other abnormality seen in the lung but abnormally enlarged right paratracheal lymph nodes are identified measuring 2.2 x 2.3 cm shows abnormal activity with SUV of 9.9. No other enlarged lymph nodes or any other abnormality seen. Abnormal uptake identified in a lesion superiorly and left lobe, larger lesion inferiorly in the right lobe also shows abnormal activity with SUV of 9.6. Patient underwent liver biopsy recently which shows adenocarcinoma, immunohistochemistry remained inconclusive but possibility of metastatic breast cancer was not ruled out although her primary breast cancer was ER [place] positive and metastatic lesion is ER [place] negative. Case was discussed with pathologist regarding role of cancer type ID but as her PET scan showed abnormal uptake in right upper lobe as well as right hilar lymph node so pathologist suggested biopsy from right hilar lymph node and if it matches with liver lesion then it will be diagnosed as metastatic lung cancer. 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 The immunohistochemistry positive for CD56, indicating neuroendocrine differentiation. But Chromogranin A, negative, synaptophysin, weak positive with again indicating neuroendocrine differentiation. Pathology was requested to do mitotic index to confirm aggressive neuroendocrine versus low-grade, on October 03, 2020. Case was discussed with pathology again on October 12, 2020, mitotic index was pending Thus patient was referred to [facility] and she was evaluated by Dr. Cruz on October 27, 2020 and as per her consult note biopsy-proven right paratracheal lymph node and biopsy-proven metastasis to the liver, poorly differentiated carcinoma with neuroendocrine features and immunohistochemical features consistent with squamous histology so her recommendations were to treat her as non-small cell lung cancer with carboplatin/Abraxane and pembrolizumab and if PD-L1 report showed more than 50%, then pembrolizumab alone. Guardant 360 testing will ordered, also recommended MRI scan of the brain and baseline CT scan of chest and abdomen/pelvis. And also plan for pathology consultation at [facility] on the right paratracheal lymph node/liver biopsies done in [place]. MRI scan of the brain done on November 21, 2020 showed no evidence of enhancing intracranial metastatic disease and repeat CT scan of chest abdomen pelvis when compared with CT scan done on July 28, 2020, July 04, 2020 and January 31, 2020 shows spiculated right upper lobe nodule is slightly larger e.g. 1.1 x 1.7 cm compared to 1.1 x 1.5 cm previously. Progressed anterior mediastinal lymph node measuring 2.2 x 2.1 cm. Progressive right peribronchial lymph nodes largest measuring 2.7 cm. Progressive subpleural nodule right upper lobe laterally measuring 8 mm. Chronic emphysematous changes. CT scan of abdomen showed significant disease progression in the liver numerous marked progressed liver lesions with innumerable new metastatic lesion both hepatic lobes largest in the right hepatic lobe measuring 7.4 x 7.4 x 6.2 cm and no other significant changes seen. Case was discussed with Dr. Cruz today and she said biopsies reviewed by their pathologist at [facility] confirmed findings consistent with small cell lung cancer in the right paratracheal lymph node but in liver biopsy he was a neuroendocrine tumor large cell type, atypical carcinoid type Started on systemic chemotherapy with carboplatin/etoposide on December 05, 2020 Came for follow-up, denies any specific complaints, feel more relieved as right upper quadrant pain is resolved. No fever chills, no nausea or vomiting, no diarrhea or constipation, no jaundice, no hemoptysis or hematemesis. Patient tolerated first cycle of chemotherapy with carboplatin/etoposide Without Neulasta, well. Still smoking about pack a day. Medications: ClearLax Powder Oral daily PRN, Endocet 1 Tablet (of 5-325 mg) Oral PRN, Levothyroxine Sodium 1 (50 mcg) Tablet Oral daily, Meloxicam 1 (15 mg) Tablet Oral daily, Pravastatin Sodium 1 (40 mg) Tablet Oral at bedtime, Prevacid 1 Capsule Capsule Delayed Release Oral daily, TraZODone HCl 1 (100 mg) Tablet Oral at bedtime, Wellbutrin SR 1 Tablet (of 150 mg) Tablet SR 12 HR Oral daily Allergies: Codeine Sulfate Review of Systems: Constitutional - Appetite is good and weight is stable. No fever, chills, hot flashes, or night sweats. Energy level is fair, ENMT - No sinus congestion/drainage. No mouth sores. No sore throat or difficulty swallowing, Hematologic/Lymphatic - No abnormal bruising or bleeding, Respiratory - Positive for shortness of breath. Frequent white phlegm productive cough. No pleuritic pain or hemoptysis, Cardiovascular - No angina pain. No palpitations, Gastrointestinal - No nausea or vomiting. No heartburn or acid reflux. No diarrhea or constipation. No blood in the stool or black stools, Genitourinary (F) - No dysuria or hematuria. No urinary frequency. No urgency or incontinence, Musculoskeletal - No joint or bone pain, Neurologic - No headache or dizziness. No numbness/paresthesias or other focal neurologic symptoms, Psychiatric - No anxiety or depression. No insomnia. Vital Signs: Performed on Dec 12, 2020 09:03 Height - 63.00 in Weight - 143.5 lbs (HIGH) BSA - 1.68 sq.m BMI - 25.42 Temperature - 98.1 F (LOW) Pulse - 114 /min (HIGH) Respiration - 16 /min BP - 119/74 mm(hg) O2 Sat - 94 % (LOW) Pain - 0 Performance Status: 0 - Fully active, able to carry on all predisease activities without restrictions. (ECOG) Physical Examination: Respiratory - Poor air entry with mild wheezing, Cardiovascular - Regular rate and rhythm of heart, Gastrointestinal - Soft, bowel sounds present, Extremities - No visible edema or rash. Lab/Imaging: Test performed on Dec 04, 2020 15:20 Sodium 135 mmol/L Potassium 4.0 mmol/L Chloride 100 mmol/L CO2 26 mmol/L Anion Gap 13.0 BUN 12 mg/dL Creatinine 0.8 mg/dL Cr Clearance (Est) 71.7200 mL/min eGFR 71.8 mL/min Glucose 146 mg/dL Osmolality - Calculated 282 mOsm/kg Calcium 9.3 mg/dL Protein, Total 6.7 g/dL Albumin 3.8 g/dL Globulin 2.9 g/dL Bilirubin, Total 0.2 mg/dL ALT (SGPT) 28 U/L AST (SGOT) 31 U/L Alkaline Phosphatase 243 IU/L WBC 8.2 10 3/uL RBC 4.55 10 6/uL HGB 13.3 g/dL HCT 42.1 % MCV 92.5 fL MCH 29.2 pg MCHC 31.6 g/dL RDW 14.2 % Platelet Count 217 10 3/cmm MPV 10.5 fL Neutrophils 5.65 10 3/uL Lymphocytes 1.1 10 3/uL Monocytes 1.2 10 3/uL Eosinophils 0.2 10 3/uL Basophils 0.0 10 3/uL Neutrophil % 69.2 % Lymphocyte % 13.7 % Monocyte % 14.3 % Eosinophil % 2.1 % Basophils % 0.2 % NRBC % 0 % Impression: 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 Follow-up CT scan of chest abdomen pelvis done on November 14, 2020 showed evidence of progressive disease in the chest with slightly progressed with right upper lobe spiculated nodule which is 1.1 x 1.7 cm compared to 1.1 x 1.5 cm and progressed anterior mediastinal lymph node measuring 2.2 x 2.1 cm and progress right peribronchial lymph node measuring 2.7 cm and significant disease progression in the liver largest mass in the right lobe 7.4 x 7.4 x 6.2 cm and numerous markedly progressed liver lesions with innumerable new metastatic lesion both hepatic lobes Whereas CT PET scan done on July 26, 2020 showed nodule identified in anterior portion of right upper lobe measuring 1.1 x 1.4 cm with SUV of 8.5 and abnormally enlarged right paratracheal lymph nodes size 2.2 x 2.3 cm with SUV of 9.9 no other abnormality seen in the lung but in the liver abnormal uptake identified in the lesion superiorly and left lobe. Larger lesion inferiorly in the right lobe also shows abnormal activity with SUV of 9.6. No other abnormality seen. 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, immunohistochemistry positive for CD56, synaptophysin, CK7, CK cocktail, weakly positive for p63, and negative for CK20, as per pathology histology is similar to prior liver biopsy sample and suggestive of lung primary with mets to the lymph node as well as liver , Mitotic indexAnd molecular profiling is pending Due to difficulty in confirming histology/primary At local hospital ,which was needed for treatment planning, she was referred to [facility] in [place] for second opinion Where she was seen on October 27, 2020 and the initial impression was non-small cell lung cancer due to squamous differentiation but pathology consultation done in October 2020 and cancer type ID reported on November 07, 2020, it was concluded that patient has neuroendocrine small cell/large cell lung cancer Started on systemic chemotherapy with carboplatin/etoposide on December 05, 2020 2. Infiltrating ductal carcinoma involving left breast per biopsy and sentinel lymph node done on 06/05/2018 followed by reexcision on 06/24/2018 for positive inferior and posterior margin and final pathology report showed persistent positive inferior margin but posterior margin was cleared. Next Size of tumor 3.2 x 2.6 cm, T2 1 out of 4, positive sentinel lymph node pN1 (SN) ER 98%, [place] 95%, HER-2/leila negative stage IIB Oncotype DX score 10 e.g. low risk and 5 years risk of recurrence after 5 years of hormone therapy is about 9% Status post postlumpectomy radiation therapy in August 2018 Starting Arimidex 1 mg on 07/21/2018 for 5 years Along with vitamin D and calcium supplements Mammogram done on 04/05/2019 showed her BI-RADS 2 DEXA scan done on 10/25/2019 showed osteopenia, FRAX calculated at 10 years probability for major osteoporotic fracture is 16.6% and osteoporotic hip fracture is 3.8% and patient is on aromatase inhibitor which promote bone demineralization, because of that she was started on preventive dose of Fosamax, 35 mg by mouth weekly on 12/29/2019 Plan: Discussed with patient regarding her labs white blood count 7.2 hemoglobin 13.4 hematocrit 40.6 platelets 239,000 CMP within normal limits except alk phos 218 compared to 243 on 11/03/2021 Clinically, patient doing well, tolerating systemic chemotherapy with carboplatin/etoposide well but with expected side effects e.g. self-limiting generalized weakness and fatigue 2 days after chemotherapy. Her follow-up CBC/CMP is within normal range. Patient is taking her allopurinol to prevent tumor lysis and she was also advised to maintain hydration. Patient was advised to quit smoking and was offered any assistance she may need She will return to clinic in 1 week with CBC CMP. Signed By: Edgar East M.D. <<Signature on File>>
[2020-12-19 14:59] LABS: Eosinophils # 0.1 10^3/uL (0.0-0.8); Eosinophils % 4.2 %; Hematocrit 35.9 % (37.0-47.0); Hemoglobin 11.7 g/dL (11.5-15.3); Lymphocytes # 0.7 10^3/uL (0.8-4.8); Lymphocytes % 48.6 %; Mean Corpuscular HGB Conc 32.6 g/dL (30.0-36.0); Mean Corpuscular Hemoglobin 29.9 pg (28.0-34.0); Mean Corpuscular Volume 91.8 fL (81-99); Mean Platelet Volume 10.2 fL (7.4-10.4); Monocytes # 0.5 10^3/uL (0.2-0.9); Monocytes % 34.5 %; Nucleated Red Blood Cells % 0 %; Platelet Count 97 10^3/cmm (130-400); Red Blood Count 3.91 10^6/uL (4.1-5.3); Red Cell Distribution Width 12.9 % (12.1-15.1); White Blood Count 1.4 10^3/uL (4.0-10.0)
[2020-12-19 15:32] LABS: Neutrophils # 0.17 10^3/uL (1.8-7.7); Slide Review Slide Review Perform
[2020-12-19 15:45] LABS: Alanine Aminotransferase 12 U/L (0-33); Albumin Level 3.9 g/dL (3.5-5.2); Alkaline Phosphatase 197 IU/L (35-105); Anion Gap 12.1 (5-19); Aspartate Amino Transferase 16 U/L (0-32); Blood Urea Nitrogen 10 mg/dL (8-23); Calcium 9.4 mg/dL (8.5-10.5); Carbon Dioxide 27 mmol/L (22-29); Chloride 103 mmol/L (98-107); Globulin 2.8 g/dL (1.3-4.6); Glomerular Filtration Rate 71.8 mL/min (90-130); Glucose 138 mg/dL (65-115); Osmolality Calculated 287 mOsm/kg (285-295); Potassium 4.1 mmol/L (3.5-5.1); Sodium 138 mmol/L (136-145); Total Bilirubin 0.2 mg/dL (0.15-1.2); Total Protein 6.7 g/dL (6.6-8.7)
--- NOTE | 2020-12-19 16:34 | ONC FU_ITS ---
Dr. East follow up note Patient: Liz Tyler Unit #: [id number]: [id number] Dicatated By: Edgar East M.D.Date of Visit:Dec 19, 2020 Onc Med Follow-up/Prog Note History of Present Illness: Mrs. 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 Mrs Azul states during her routine annual follow-up mammogram done this year, a spiculated mass in her left breast was discovered. A left breast ultrasound done on 04/22/2018 at which time she also underwent sonogram guided left breast biopsy which confirmed infiltrating adenocarcinoma. Mrs Azul underwent left breast excisional biopsy with sentinel lymph node biopsy on 06/05/2018 which showed infiltrating ductal carcinoma but positive inferior and posterior margin and 1 out of 4, positive lymph node. ER/MI positive HER-2/leila negative. She underwent reexcision of inferior and posterior margins on 06/24/2018. The final pathology report showed inferior margin involved by microscopic nest of residual tumor whereas posterior margin was free of residual tumor.Oncotype DX showed low risk s/p postlumpectomy radiation in 09/10 and now on adjuvant hormonal therapy with Arimidex vitamin D/calcium, since 07/21/18 Follow-up mammogram done on 04/05/2019 showed BI-RADS 2, benign follow-up mammogram done on April 28, 2020 showed BI-RADS 2, benign Follow-up CT scan of chest ordered by PMD regarding right middle lobe lung nodule on January 31, 2020 showed noncalcified pulmonary nodule in the right upper lobe is increased in size, 8.3 mm compared to 4 mm previously on August 03, 2019. Right middle lobe nodular opacities stable since May 01, 2018. Otherwise no mediastinal or hilar lymphadenopathy Tolerating Arimidex/vitamin D/calcium and weekly Fosamax well Patient underwent follow-up CT scan of chest ordered by her PMD on July 04, 2020 which showed significant enlargement of anterior right upper lobe lobe pulmonary nodules since January 31, 2020 nodule now measures 1.1 x 1.5 cm compared to 8 x 9 mm previously. And also showed new enlarged right paratracheal lymph node measuring about 1.8 cm. And on the scan entire liver is not imaged and appears slightly enlarged. There are few scattered hypodensities throughout the liver which are probably small cysts but too small to characterize no renal mass seen., Patient underwent CT PET scan ordered by her PMD on July 26, 2020 in [place] which showed nodule identified in anterior portion of right upper lobe measuring 1.1 x 1.4 cm shows SUV of 8.5. Inferior to this are other pulmonary micronodules measuring less than 1 cm. No other abnormality seen in the lung but abnormally enlarged right paratracheal lymph nodes are identified measuring 2.2 x 2.3 cm shows abnormal activity with SUV of 9.9. No other enlarged lymph nodes or any other abnormality seen. Abnormal uptake identified in a lesion superiorly and left lobe, larger lesion inferiorly in the right lobe also shows abnormal activity with SUV of 9.6. Patient underwent liver biopsy recently which shows adenocarcinoma, immunohistochemistry remained inconclusive but possibility of metastatic breast cancer was not ruled out although her primary breast cancer was ER MI positive and metastatic lesion is ER MI negative. Case was discussed with pathologist regarding role of cancer type ID but as her PET scan showed abnormal uptake in right upper lobe as well as right hilar lymph node so pathologist suggested biopsy from right hilar lymph node and if it matches with liver lesion then it will be diagnosed as metastatic lung cancer. 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 The immunohistochemistry positive for CD56, indicating neuroendocrine differentiation. But Chromogranin A, negative, synaptophysin, weak positive with again indicating neuroendocrine differentiation. Pathology was requested to do mitotic index to confirm aggressive neuroendocrine versus low-grade, on October 03, 2020. Case was discussed with pathology again on October 12, 2020, mitotic index was pending Thus patient [facility] and she was evaluated by Dr. Cruz on October 27, 2020 and as per her consult note biopsy-proven right paratracheal lymph node and biopsy-proven metastasis to the liver, poorly differentiated carcinoma with neuroendocrine features and immunohistochemical features consistent with squamous histology so her recommendations were to treat her as non-small cell lung cancer with carboplatin/Abraxane and pembrolizumab and if PD-L1 report showed more than 50%, then pembrolizumab alone. Guardant 360 testing will ordered, also recommended MRI scan of the brain and baseline CT scan of chest and abdomen/pelvis. And also plan for pathology consultation at [place] on the right paratracheal lymph node/liver biopsies done in [place]. MRI scan of the brain done on November 21, 2020 showed no evidence of enhancing intracranial metastatic disease and repeat CT scan of chest abdomen pelvis when compared with CT scan done on July 28, 2020, July 04, 2020 and January 31, 2020 shows spiculated right upper lobe nodule is slightly larger e.g. 1.1 x 1.7 cm compared to 1.1 x 1.5 cm previously. Progressed anterior mediastinal lymph node measuring 2.2 x 2.1 cm. Progressive right peribronchial lymph nodes largest measuring 2.7 cm. Progressive subpleural nodule right upper lobe laterally measuring 8 mm. Chronic emphysematous changes. CT scan of abdomen showed significant disease progression in the liver numerous marked progressed liver lesions with innumerable new metastatic lesion both hepatic lobes largest in the right hepatic lobe measuring 7.4 x 7.4 x 6.2 cm and no other significant changes seen. Case was discussed with Dr. 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 Came for follow-up, denies any specific complaints, no more right upper quadrant pain or discomfort. Tolerated first cycle of chemotherapy well without significant problem. No fever chills, no nausea or vomiting, no diarrhea constipation, no sore throat,, No dysuria, no chest pain, no hemoptysis or hematemesis, still smoking about pack a day Medications: ClearLax Powder Oral daily PRN, Endocet 1 Tablet (of 5-325 mg) Oral PRN, Levothyroxine Sodium 1 (50 mcg) Tablet Oral daily, Meloxicam 1 (15 mg) Tablet Oral daily, Pravastatin Sodium 1 (40 mg) Tablet Oral at bedtime, Prevacid 1 Capsule Capsule Delayed Release Oral daily, TraZODone HCl 1 (100 mg) Tablet Oral at bedtime, Wellbutrin SR 1 Tablet (of 150 mg) Tablet SR 12 HR Oral daily Allergies: Codeine Sulfate Review of Systems: Review of Systems is not available for this patient. Vital Signs: Performed on Dec 19, 2020 16:01 Height - 63.00 in Weight - 142.0 lbs (LOW) BSA - 1.67 sq.m BMI - 25.15 Temperature - 98.0 F (LOW) Pulse - 99 /min Respiration - 18 /min BP - 100/69 mm(hg) O2 Sat - 97 % Pain - 0 Performance Status: 1 - No physically strenuous activity, but ambulatory and able to carry out light or sedentary work (e.g. office work, light house work). (ECOG) Physical Examination: Respiratory - Poor air entry otherwise clear, Cardiovascular - Regular rate and rhythm of heart, Gastrointestinal - Soft, bowel sounds present, Extremities - No visible edema or rash. Lab/Imaging: Test performed on Dec 11, 2020 14:47 Sodium 137 mmol/L Potassium 4.7 mmol/L Chloride 100 mmol/L CO2 25 mmol/L Anion Gap 16.7 BUN 22 mg/dL Creatinine 0.8 mg/dL Cr Clearance (Est) 71.7200 mL/min eGFR 71.8 mL/min Glucose 122 mg/dL Osmolality - Calculated 289 mOsm/kg Calcium 9.5 mg/dL Protein, Total 7.1 g/dL Albumin 4.2 g/dL Globulin 2.9 g/dL Bilirubin, Total 0.3 mg/dL ALT (SGPT) 25 U/L AST (SGOT) 37 U/L Alkaline Phosphatase 218 IU/L WBC 7.2 10 3/uL RBC 4.49 10 6/uL HGB 13.4 g/dL HCT 40.6 % MCV 90.4 fL MCH 29.8 pg MCHC 33.0 g/dL RDW 13.5 % Platelet Count 239 10 3/cmm MPV 10.1 fL Neutrophils 5.79 10 3/uL Lymphocytes 1.2 10 3/uL Monocytes 0.1 10 3/uL Eosinophils 0.0 10 3/uL Basophils 0.0 10 3/uL Neutrophil % 80.9 % Lymphocyte % 16.1 % Monocyte % 1.0 % Eosinophil % 0.6 % Basophils % 0.4 % NRBC % 0 % Impression: 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 Follow-up CT scan of chest abdomen pelvis done on November 14, 2020 showed evidence of progressive disease in the chest with slightly progressed with right upper lobe spiculated nodule which is 1.1 x 1.7 cm compared to 1.1 x 1.5 cm and progressed anterior mediastinal lymph node measuring 2.2 x 2.1 cm and progress right peribronchial lymph node measuring 2.7 cm and significant disease progression in the liver largest mass in the right lobe 7.4 x 7.4 x 6.2 cm and numerous markedly progressed liver lesions with innumerable new metastatic lesion both hepatic lobes Whereas CT PET scan done on July 26, 2020 showed nodule identified in anterior portion of right upper lobe measuring 1.1 x 1.4 cm with SUV of 8.5 and abnormally enlarged right paratracheal lymph nodes size 2.2 x 2.3 cm with SUV of 9.9 no other abnormality seen in the lung but in the liver abnormal uptake identified in the lesion superiorly and left lobe. Larger lesion inferiorly in the right lobe also shows abnormal activity with SUV of 9.6. No other abnormality seen. 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, immunohistochemistry positive for CD56, synaptophysin, CK7, CK cocktail, weakly positive for p63, and negative for CK20, as per pathology histology is similar to prior liver biopsy sample and suggestive of lung primary with mets to the lymph node as well as liver , Mitotic indexAnd molecular profiling is pending Due to difficulty in confirming histology/primary At local hospital ,which was needed for treatment planning, she was referred to [facility] in [place] for second opinion Where she was seen on October 27, 2020 and the initial impression was non-small cell lung cancer due to squamous differentiation but pathology consultation done in October 2020 and cancer type ID reported on November 07, 2020, it was concluded that patient has neuroendocrine small cell/large cell lung cancer Started on systemic chemotherapy with carboplatin/etoposide on December 05, 2020 2. Infiltrating ductal carcinoma involving left breast per biopsy and sentinel lymph node done on 06/05/2018 followed by reexcision on 06/24/2018 for positive inferior and posterior margin and final pathology report showed persistent positive inferior margin but posterior margin was cleared. Next Size of tumor 3.2 x 2.6 cm, T2 1 out of 4, positive sentinel lymph node pN1 (SN) ER 98%, MI 95%, HER-2/leila negative stage IIB Oncotype DX score 10 e.g. low risk and 5 years risk of recurrence after 5 years of hormone therapy is about 9% Status post postlumpectomy radiation therapy in August 2018 Starting Arimidex 1 mg on 07/21/2018 for 5 years Along with vitamin D and calcium supplements Mammogram done on 04/05/2019 showed her BI-RADS 2 DEXA scan done on 10/25/2019 showed osteopenia, FRAX calculated at 10 years probability for major osteoporotic fracture is 16.6% and osteoporotic hip fracture is 3.8% and patient is on aromatase inhibitor which promote bone demineralization, because of that she was started on preventive dose of Fosamax, 35 mg by mouth weekly on 12/29/2019 Plan: Discussed with patient regarding her labs white blood count 1.4 hemoglobin 11.7 hematocrit 35.9 platelets 97,000 ANC 170 CMP within normal limits except glucose 138 Clinically, patient doing well with no new signs symptom, tolerated first cycle of chemotherapy with carboplatin/etoposide well but with expected side effects e.g. progressive severe leukopenia/neutropenia and mild thrombocytopenia. At this point, will consider prophylactic antibiotics with Levaquin 500 mg p.o. daily, patient was advised to avoid public places and sick people and in case she spike any fever or any generalized weakness and fatigue, she need to go to hospital for evaluation otherwise return to clinic in 1 week with CBC CMP if reasonable second cycle of chemotherapy with carboplatin/etoposide and also consider adding Tecentriq followed by Neulasta to prevent chemotherapy-induced neutropenia/leukopenia And then will consider follow-up CT scan of chest abdomen after next cycle of chemotherapy to assess disease response and patient is moving to [facility] in end of December 2020, her daughter has already contacted local oncologist to resume further care, Signed By: Edgar East M.D. <<Signature on File>>
== END 2020-12-24 23:59 | disposition home or self-care (01) ==
LOC: ONCMED 05:38
PROVIDERS: PCP Internal Medicine; Visit Provider Internal Medicine Hematology & Oncology
DX: Z51.11 Encounter for antineoplastic chemotherapy (principal); C7A.8 Other malignant neuroendocrine tumors; C7B.8 Other secondary neuroendocrine tumors; C50.212 Malignant neoplasm of upper-inner quadrant of left female breast; Z17.0 Estrogen receptor positive status [ER+]; E55.9 Vitamin D deficiency, unspecified; E83.51 Hypocalcemia; M85.80 Other specified disorders of bone density and structure, unspecified site; F17.210 Nicotine dependence, cigarettes, uncomplicated; Z79.899 Other long term (current) drug therapy; Z79.811 Long term (current) use of aromatase inhibitors
CPT/HCPCS: 36415; 36591; 80053; 85025; 96367; 96413; 96417; 99214; 99215; J1100; J2405; J2469; J7040; J7050; J9045; J9181

== ENCOUNTER 2020-12-28 05:36 | Outpatient (RCR) | payer MEDICARE, MEDICAID, SELFPAY ==
[2020-12-26 08:54] LABS: Basophils % 0.4 %; Eosinophils % 0.7 %; Hematocrit 35.4 % (37.0-47.0); Hemoglobin 11.3 g/dL (11.5-15.3); Lymphocytes # 1.1 10^3/uL (0.8-4.8); Mean Corpuscular HGB Conc 31.9 g/dL (30.0-36.0); Mean Corpuscular Hemoglobin 29.3 pg (28.0-34.0); Mean Corpuscular Volume 91.7 fL (81-99); Mean Platelet Volume 10.4 fL (7.4-10.4); Monocytes # 1.2 10^3/uL (0.2-0.9); Monocytes % 22.1 %; Neutrophils # 2.79 10^3/uL (1.8-7.7); Neutrophils % 52.2 %; Nucleated Red Blood Cells % 0 %; Platelet Count 251 10^3/cmm (130-400); Red Blood Count 3.86 10^6/uL (4.1-5.3); Red Cell Distribution Width 14.3 % (12.1-15.1); White Blood Count 5.3 10^3/uL (4.0-10.0)
[2020-12-26 09:28] LABS: Alanine Aminotransferase 8 U/L (0-33); Albumin Level 4.1 g/dL (3.5-5.2); Alkaline Phosphatase 184 IU/L (35-105); Anion Gap 13.3 (5-19); Aspartate Amino Transferase 15 U/L (0-32); Blood Urea Nitrogen 10 mg/dL (8-23); Calcium 9.9 mg/dL (8.5-10.5); Carbon Dioxide 27 mmol/L (22-29); Chloride 102 mmol/L (98-107); Globulin 2.6 g/dL (1.3-4.6); Glomerular Filtration Rate 71.8 mL/min (90-130); Glucose 73 mg/dL (65-115); Osmolality Calculated 284 mOsm/kg (285-295); Potassium 4.3 mmol/L (3.5-5.1); Sodium 138 mmol/L (136-145); Total Bilirubin 0.2 mg/dL (0.15-1.2); Total Protein 6.7 g/dL (6.6-8.7)
[2020-12-26] MEDS: sodium chloride 0.9% 250 ML 75 ML IV (10:20)
[2020-12-26] MEDS: ondansetron 2 mg/ML SDV 2 mL 8 MG IVP (10:20)
[2020-12-27] MEDS: sodium chloride 0.9% 250 ML 75 ML IV (09:00)
[2020-12-27] MEDS: ondansetron 2 mg/ML SDV 2 mL 8 MG IVP (09:00)
[2020-12-28] MEDS: sodium chloride 0.9% 250 ML 75 ML IV (09:15)
[2020-12-28] MEDS: palonosetron 0.25 mg/5 mL SDV IVP (09:15)
[2020-12-28] MEDS: pegfilgrastim 6 mg/0.6 mL Kit (onpro) SUBCUT (10:55)
--- NOTE | 2021-01-01 11:24 | ONC FU_ITS ---
[facility] Patient Note Patient: Liz Tyler Unit #: [id number]: [id number] Dictated By: Navin GongoraDate of Visit: Dec 26, 2020 Onc MED Follow-Up/Prog Note Chief Complaint: Left breast cancer History of Present Illness: Mrs. 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 Mrs Azul states during her routine annual follow-up mammogram done this year, a spiculated mass in her left breast was discovered. A left breast ultrasound done on 04/22/2018 at which time she also underwent sonogram guided left breast biopsy which confirmed infiltrating adenocarcinoma. Mrs Azul underwent left breast excisional biopsy with sentinel lymph node biopsy on 06/05/2018 which showed infiltrating ductal carcinoma but positive inferior and posterior margin and 1 out of 4, positive lymph node. ER/MN positive HER-2/leila negative. She underwent reexcision of inferior and posterior margins on 06/24/2018. The final pathology report showed inferior margin involved by microscopic nest of residual tumor whereas posterior margin was free of residual tumor.Oncotype DX showed low risk s/p postlumpectomy radiation in 09/10 and now on adjuvant hormonal therapy with Arimidex vitamin D/calcium, since 07/21/18 Follow-up mammogram done on 04/05/2019 showed BI-RADS 2, benign follow-up mammogram done on April 28, 2020 showed BI-RADS 2, benign Follow-up CT scan of chest ordered by PMD regarding right middle lobe lung nodule on January 31, 2020 showed noncalcified pulmonary nodule in the right upper lobe is increased in size, 8.3 mm compared to 4 mm previously on August 03, 2019. Right middle lobe nodular opacities stable since May 01, 2018. Otherwise no mediastinal or hilar lymphadenopathy Tolerating Arimidex/vitamin D/calcium and weekly Fosamax well Ms Tyler underwent follow-up CT scan of chest ordered by her PMD on July 04, 2020 which showed significant enlargement of anterior right upper lobe lobe pulmonary nodules since January 31, 2020. The nodule measured 1.1 x 1.5 cm compared to 8 x 9 mm previously. The scan also showed new enlarged right paratracheal lymph node measuring about 1.8 cm. And on the scan entire liver is not imaged and appears slightly enlarged. There are few scattered hypodensities throughout the liver which are probably small cysts but too small to characterize no renal mass seen., She underwent CT PET scan ordered by her PMD on July 26, 2020 in [place] which showed nodule identified in anterior portion of right upper lobe measuring 1.1 x 1.4 cm shows SUV of 8.5. Inferior to this are other pulmonary micronodules measuring less than 1 cm. No other abnormality seen in the lung but abnormally enlarged right paratracheal lymph nodes are identified measuring 2.2 x 2.3 cm shows abnormal activity with SUV of 9.9. No other enlarged lymph nodes or any other abnormality seen. Abnormal uptake identified in a lesion superiorly and left lobe, larger lesion inferiorly in the right lobe also shows abnormal activity with SUV of 9.6. Ms Tyler then underwent liver biopsy recently which shows adenocarcinoma, immunohistochemistry remained inconclusive but possibility of metastatic breast cancer was not ruled out although her primary breast cancer was ER MN positive and metastatic lesion is ER MN negative. Her case was discussed with pathologist (per Dr East) regarding role of cancer type ID. Her PET scan showed abnormal uptake in right upper lobe as well as right hilar lymph node so pathologist suggested biopsy from right hilar lymph node and if it matches with liver lesion then it will be diagnosed as metastatic lung cancer. 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 The immunohistochemistry positive for CD56, indicating neuroendocrine differentiation. But Chromogranin A, negative, synaptophysin, weak positive with again indicating neuroendocrine differentiation. Pathology was requested to do mitotic index to confirm aggressive neuroendocrine versus low-grade, on October 03, 2020. Case was discussed with pathology again on October 12, 2020, mitotic index was pending Thus patient was referred to [facility] and she was evaluated by Dr. Cruz on October 27, 2020 and as per her consult note biopsy-proven right paratracheal lymph node and biopsy-proven metastasis to the liver, poorly differentiated carcinoma with neuroendocrine features and immunohistochemical features consistent with squamous histology so her recommendations were to treat her as non-small cell lung cancer with carboplatin/Abraxane and pembrolizumab and if PD-L1 report showed more than 50%, then pembrolizumab alone. Guardant 360 testing will ordered, also recommended MRI scan of the brain and baseline CT scan of chest and abdomen/pelvis. And also plan for pathology consultation at [place] on the right paratracheal lymph node/liver biopsies done in [place]. MRI scan of the brain done on November 21, 2020 showed no evidence of enhancing intracranial metastatic disease and repeat CT scan of chest abdomen pelvis when compared with CT scan done on July 28, 2020, July 04, 2020 and January 31, 2020 shows spiculated right upper lobe nodule is slightly larger e.g. 1.1 x 1.7 cm compared to 1.1 x 1.5 cm previously. Progressed anterior mediastinal lymph node measuring 2.2 x 2.1 cm. Progressive right peribronchial lymph nodes largest measuring 2.7 cm. Progressive subpleural nodule right upper lobe laterally measuring 8 mm. Chronic emphysematous changes. CT scan of abdomen showed significant disease progression in the liver numerous marked progressed liver lesions with innumerable new metastatic lesion both hepatic lobes largest in the right hepatic lobe measuring 7.4 x 7.4 x 6.2 cm and no other significant changes seen. Her case was discussed with Dr. Cruz and she said biopsies reviewed by their pathologist at [place] confirmed findings consistent with small cell lung cancer in the right paratracheal lymph node but in liver biopsy there was a neuroendocrine tumor large cell type, atypical carcinoid type. Ms Tyler started on systemic chemotherapy with carboplatin/etoposide on December 05, 2020. She has completed one cycle. She is here today for followup and consideration of cycle 2 Carboplatin/etoposide. Ms. Tyler is accompanied by her daughter today. She states overall she feels pretty good. She did have one episode of spontaneous vomiting on Friday. She states she really had not had any nausea just had emesis. She has had some intermittent heartburn but states she does not recall that being a problem when she had the episode of emesis. She has had no recurrence of the vomiting. She states she is planning to move to [place] this weekend. She and her daughter will be driving there and plan to leave on Friday after her treatment completes on . She states overall she feels better. Her breathing is better. She has had some right mid lower quadrant pain but states after her bowels move good that this seem to settle down as well. She is had no recurrence of that. She denies any fever or chills. She denies mouth sores, sore throat or difficulty swallowing. She states she is had some intermittent diarrhea and constipation but controls this with [id number] antidiarrheals and stool softener/laxatives as needed. She denies any pain. She denies any lower extremity edema. She denies any orthopnea. She has had no neuropathy symptoms. Her ECOG is 1. Past Medical History: Asthma Hpv Hypercholesterolemia Hypothyroidism Rheumatoid arthritis Past Surgical History: Hernia repair Right ankle fracture repair Tonsillectomy Tubal ligation Breast biopsy in 2018 Allergies: Codeine Sulfate Medications: Allopurinol 1 Tablet (of 100 mg) Oral t.i.d. ClearLax Powder Oral daily PRN Endocet 1 Tablet (of 5-325 mg) Oral PRN Levothyroxine Sodium 1 (50 mcg) Tablet Oral daily Meloxicam 1 (15 mg) Tablet Oral daily Pravastatin Sodium 1 (40 mg) Tablet Oral at bedtime Prevacid 1 Capsule Capsule Delayed Release Oral daily TraZODone HCl 1 (100 mg) Tablet Oral at bedtime Wellbutrin SR 1 Tablet (of 150 mg) Tablet SR 12 HR Oral daily Family History: Ms. Tyler has 1 brother who is alive: head & neck ([facility]) cancer. Social History: Ms. Tyler is single. She is a daily smoker who has smoked 2.0 packs/day for 50 years. She is a former drinker who had consumed 1 day/week. She has indicated exposure to the following products: cigarettes. Review Of Symptoms: Constitutional Denies fevers, chills, night sweats, excessive fatigue or weight loss. Allergic/Immunologic No reactions. Eyes Denies significant visual changes. No diplopia. No amaurosis. ENMT Denies changes in hearing, sore throat, mouth sores, difficulty or changes in swallowing ability, and/or sinus drainage. Hematologic/Lymphatic Denies easy bruising or bleeding. The patient denies any tender or palpable lymph nodes. Breasts Denies any concerns. Respiratory Denies dyspnea on exertion, chest pain, cough or hemoptysis. Denies orthopnea. Cardiovascular Denies anginal chest pain, palpitations or orthopnea. Gastrointestinal Denies nausea, current vomiting, diarrhea, GI bleeding, or constipation. Denies change in bowel habits and/or stool color, no heartburn or early satiety. Genitourinary (F) No hematuria, hesitancy, incontinence, vaginal bleeding, discharge or other problems with urination. Musculoskeletal Denies joint pain, swelling or redness. No decreased range of motion. Integumentary Denies chronic rashes, inflammation, ulcerations or skin changes. Neurologic Denies headache, blurred vision, and no areas of focal weakness or numbness. Normal gait. No sensory problems. Psychiatric Denies insomnia, depression, rustam or mood swings. Vital Signs: Performed on Dec 26, 2020 09:37 Height - 63.00 in Weight - 142.4 lbs (HIGH) BSA - 1.67 sq.m BMI - 25.23 Temperature - 95.6 F (LOW) Pulse - 90 /min Respiration - 18 /min BP - 110/67 mm(hg) O2 Sat - 90 % (LOW) Pain - 0,1 - No physically strenuous activity, but ambulatory and able to carry out light or sedentary work (e.g. office work, light house work). (ECOG) Physical Examination: Constitutional Alert, oriented, no acute distress. Skin pink, warm and dry. Head Normocephalic; atraumatic. Eyes Conjunctivae and sclerae are clear and without icterus. Pupils are reactive and equal. ENMT No oral exudates, ulcers, masses, thrush or mucositis. Oropharynx clear. Tongue normal. Neck Supple without masses or thyromegaly. No jugular venous distension. Hematologic/Lymphatic No petechiae or purpura. No tender or palpable lymph nodes in the cervical or supraclavicular areas. Respiratory Lungs are clear to auscultation without rhonchi or wheezing. Cardiovascular Regular rate and rhythm of heart without murmurs,clicks, gallops or rubs. Breasts Abdomen Non-tender, non-distended, no masses or ascites. Good bowel sounds noted in all quads. No guarding or rebound tenderness. No pulsatile masses. Back/Spine Non-tender to palpation. Extremities No visible deformities, no cyanosis, clubbing or edema. Musculoskeletal No tenderness or swelling, normal range of motion without obvious weakness. Integumentary No rashes or lesions. Neurologic No sensory or motor deficits, normal cerebellar function, normal gait. Psychiatric Alert and oriented times three. Coherent speech. Verbalizes understanding of our discussions today. Laboratory:Test performed on Dec 26, 2020 08:16 Sodium 138 mmol/L Potassium 4.3 mmol/L Chloride 102 mmol/L CO2 27 mmol/L Anion Gap 13.3 BUN 10 mg/dL Creatinine 0.8 mg/dL Cr Clearance (Est) 71.7200 mL/min eGFR 71.8 mL/min Glucose 73 mg/dL Osmolality - Calculated 284 mOsm/kg Calcium 9.9 mg/dL Protein, Total 6.7 g/dL Albumin 4.1 g/dL Globulin 2.6 g/dL Bilirubin, Total 0.2 mg/dL ALT (SGPT) 8 U/L AST (SGOT) 15 U/L Alkaline Phosphatase 184 IU/L WBC 5.3 10 3/uL RBC 3.86 10 6/uL HGB 11.3 g/dL HCT 35.4 % MCV 91.7 fL MCH 29.3 pg MCHC 31.9 g/dL RDW 14.3 % Platelet Count 251 10 3/cmm MPV 10.4 fL Neutrophils 2.79 10 3/uL Lymphocytes 1.1 10 3/uL Monocytes 1.2 10 3/uL Eosinophils 0.0 10 3/uL Basophils 0.0 10 3/uL Neutrophil % 52.2 % Lymphocyte % 21.0 % Monocyte % 22.1 % Eosinophil % 0.7 % Basophils % 0.4 % NRBC % 0 % Impression: 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 Follow-up CT scan of chest abdomen pelvis done on November 14, 2020 showed evidence of progressive disease in the chest with slightly progressed with right upper lobe spiculated nodule which is 1.1 x 1.7 cm compared to 1.1 x 1.5 cm and progressed anterior mediastinal lymph node measuring 2.2 x 2.1 cm and progress right peribronchial lymph node measuring 2.7 cm and significant disease progression in the liver largest mass in the right lobe 7.4 x 7.4 x 6.2 cm and numerous markedly progressed liver lesions with innumerable new metastatic lesion both hepatic lobes Whereas CT PET scan done on July 26, 2020 showed nodule identified in anterior portion of right upper lobe measuring 1.1 x 1.4 cm with SUV of 8.5 and abnormally enlarged right paratracheal lymph nodes size 2.2 x 2.3 cm with SUV of 9.9 no other abnormality seen in the lung but in the liver abnormal uptake identified in the lesion superiorly and left lobe. Larger lesion inferiorly in the right lobe also shows abnormal activity with SUV of 9.6. No other abnormality seen. 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, immunohistochemistry positive for CD56, synaptophysin, CK7, CK cocktail, weakly positive for p63, and negative for CK20, as per pathology histology is similar to prior liver biopsy sample and suggestive of lung primary with mets to the lymph node as well as liver , Mitotic indexAnd molecular profiling is pending Due to difficulty in confirming histology/primary At local hospital ,which was needed for treatment planning, she was referred to [facility] for second opinion Where she was seen on October 27, 2020 and the initial impression was non-small cell lung cancer due to squamous differentiation but pathology consultation done in October 2020 and cancer type ID reported on November 07, 2020, it was concluded that patient has neuroendocrine small cell/large cell lung cancer Started on systemic chemotherapy with carboplatin/etoposide on December 05, 2020 2. Infiltrating ductal carcinoma involving left breast per biopsy and sentinel lymph node done on 06/05/2018 followed by reexcision on 06/24/2018 for positive inferior and posterior margin and final pathology report showed persistent positive inferior margin but posterior margin was cleared. Next Size of tumor 3.2 x 2.6 cm, T2 1 out of 4, positive sentinel lymph node pN1 (SN) ER 98%, MN 95%, HER-2/leila negative stage IIB Oncotype DX score 10 e.g. low risk and 5 years risk of recurrence after 5 years of hormone therapy is about 9% Status post postlumpectomy radiation therapy in August 2018 Starting Arimidex 1 mg on 07/21/2018 for 5 years Along with vitamin D and calcium supplements Mammogram done on 04/05/2019 showed her BI-RADS 2 DEXA scan done on 10/25/2019 showed osteopenia, FRAX calculated at 10 years probability for major osteoporotic fracture is 16.6% and osteoporotic hip fracture is 3.8% and patient is on aromatase inhibitor which promote bone demineralization, because of that she was started on preventive dose of Fosamax, 35 mg by mouth weekly on 12/29/2019 Plan: PROBLEMS ADDRESSED TODAY 1. 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 Proceed with cycle 2 carboplatin etoposide with same treatment plan as cycle 1 with exception of adding Neulasta or equivalent for growth factor support as her ANC on day 15 was 170 and is 2790 today. B. Continue current antiemetics as they are working well for her. She may use Compazine, ondansetron and lorazepam as needed at home. Will make sure she has adequate prescription for all of these for her trip to [place]. C. Today's labs reviewed in detail discussed with Ms. Tyler and her daughter and a copy was given to her. WBC 5.3, hemoglobin 11.3, platelets 1 51,000 ANC is 2790. Potassium 4.3 creatinine 0.8 random glucose 73 LFTs are normal alk phos is 184 but improved from last visit of 197. C. We will make sure that she has refills of her prescription medication for her trip to [place]. She and her daughter inform me that they do have a follow-up with their oncologist there in [place] on January 08, 2021. She has not had restaging as per Dr. East's last clinic note but this will only be her second cycle of chemotherapy. She states she wants to do this with her doctor in [place] as she will be following with them after this treatment. D. Mrs. Tyler was instructed to contact us if we can be of any further assistance and will be glad to see her back should she return back to our area. She has already requested her medical records from [place] to take with her including CT disc etc. 2. Infiltrating carcinoma the left breast diagnosed 06/05/2018 A. Continue Arimidex 1 mg daily along with Fosamax 35 mg weekly and calcium vitamin D supplements. B. Her last diagnostic bilateral digital mammogram imaging was on 04/28/2020. Was reported as BI-RADS 2???benign recommend follow-up in 1 year. Signed By: Navin Gongora-, [facility] Edgar East MD<<Signature on File>>
== END 2021-01-21 23:59 | disposition home or self-care (01) ==
LOC: ONCMED 05:36
PROVIDERS: Nurse Practitioner; PCP Internal Medicine; Visit Provider Internal Medicine Hematology & Oncology
DX: Z51.11 Encounter for antineoplastic chemotherapy (principal); C7A.8 Other malignant neuroendocrine tumors; C7B.8 Other secondary neuroendocrine tumors; C50.212 Malignant neoplasm of upper-inner quadrant of left female breast; Z17.0 Estrogen receptor positive status [ER+]; J45.909 Unspecified asthma, uncomplicated; E78.00 Pure hypercholesterolemia, unspecified; E03.9 Hypothyroidism, unspecified; M06.9 Rheumatoid arthritis, unspecified; E55.9 Vitamin D deficiency, unspecified; E83.51 Hypocalcemia; M85.80 Other specified disorders of bone density and structure, unspecified site; F17.210 Nicotine dependence, cigarettes, uncomplicated; Z79.811 Long term (current) use of aromatase inhibitors; Z79.899 Other long term (current) drug therapy
CPT/HCPCS: 80053; 85025; 96367; 96372; 96375; 96413; 96417; 99214; J1100; J2405; J2469; J2505; J7040; J7050; J9045; J9181